=== PATIENT | male | born 1955 | race Caucasian/White ===

== ENCOUNTER → 2016-08-16 | Outpatient (CLI) | payer BC ==
--- NOTE | 2016-08-19 14:15 | PE ---
Nuclear medicine PET/CT HISTORY: Right upper lobe lung mass No comparisons Patient received 15.5 mCi 18 FDG. Delayed scanning was performed from skull base to the mid thighs. A localization and attenuation correction CT scan was performed Neck and chest: Right upper lobe lung mass measures approximately 4.2 cm in transverse dimension by 3 .6 cm in AP dimension and shows some central lucency, spiculated margins, pleural extension in the ri ght upper lobe. There is associated hypermetabolic uptake, SUV 21 there is no mediastinal, axillary, or hilar adenopathy. Coronary artery calcifications noted incidentally. Abdomen pelvis: No adrenal mass. No retroperitoneal adenopathy, no suspicious hypermetabolic uptake. IMPRESSION: Right upper lobe mass with corresponding hypermetabolic uptake, no evident adenopathy. Fi ndings suspicious for bronchogenic carcinoma.
== END | disposition home or self-care (01) ==
LOC: RADPETMAIN 11:20
PROVIDERS: ATTEND Internal Medicine
DX: R22.2 Localized swelling, mass and lump, trunk (principal)
CPT/HCPCS: 78815; A9552

== ENCOUNTER 2016-08-22 11:44 | Day surgery (SDC) | payer BC ==
[2016-08-20 15:21] VITALS: BMI 29.7
[~2016-08-22 11:44] MED LIST: ALBUTEROL NEB (CONC) 2.5 MG/0.5 ML INHALATION ONE; LACTATED RINGERS 1,000 ML IV ONE; LACTATED RINGERS 1,000 ML IV SCH; LIDOCAINE 2% (PF) 20 MG/ML 10ML INHALATION ONE; Pre Op ABX Message 1 EACH MISC MISCELLANE ONE
[2016-08-22 12:33] VITALS: TEMP 97.5
[2016-08-22] MEDS ORDERED: LIDOCAINE 1% 20 ML VIAL (10MG/ML) FOR IV START INTRADERMA ONE (12:40)
[2016-08-22] MEDS ORDERED: fentaNYL (PF) 50 MCG/ML 2 ML AMP ONE (14:16)
[2016-08-22] MEDS ORDERED: MIDAZOLAM 2 MG/2 ML VIAL ONE (14:16)
[2016-08-22] MEDS ORDERED: PROPOFOL 10 MG/ML 20 ML VIAL IV ONE (14:16)
[2016-08-22] MEDS ORDERED: GLYCOPYRROLATE 0.2 MG/ML 2 ML VIAL ONE (14:16)
[2016-08-22] MEDS ORDERED: KETAMINE 10 MG/ML 20 ML VIAL ONE (14:16)
[2016-08-22] MEDS ORDERED: LIDOCAINE 1% INJ 10MG/ML (20 ML MDV) ONE (14:16)
--- NOTE | 2016-08-22 14:49 | P.PCN ---
Date of Procedure: 08/22/16 Preoperative Diagnosis: Right upper lobe mass Postoperative Diagnosis: Right upper lobe mass Procedure(s) Performed: Flexible bronchoscopy, transbronchial biopsy Anesthesia: MAC Surgeon: Dm Phillip Vacuum Evaporation Operator #1: Jodie Egan Estimated Blood Loss (ml): 10 Condition: stable Disposition: same day Indications for Procedure: Right upper lobe mass Operative Findings: I am performing this procedure for Dr. Aguilar. The procedure was originally scheduled to be done by Dr. Phelps however due to time constraints I am doubling the procedure. I introduced myself to the patient. This was her first encounter with this patient. The procedure including the potential Occasions with expected to the patient at length and a consent was signed. The films were reviewed This procedure was done in the bronchoscopy suite and anesthesia was administered by the anesthesia team. This was done under conscious sedation. After achieving adequate sedation flexible bronchoscope was inserted right nostril was advanced into the upper airway. Examination of the posterior oropharynx, larynx and epiglottis and vocal cords was done. There was significant amount of adipose tissue and dynamic obstruction of the upper airway typical of obstructive sleep apnea. Note that the patient continued to obstructive upper airway throughout the procedure causing long periods of apneas and oxygen desaturation which limits our time and exposure to the right upper lobe mass. In any rate, the upper airway structures were all inspected. Epiglottis, vallecula, arytenoids and the vocal cords were all seen and all of these upper airway structures were within normal limits. Lidocaine was applied to the vocal cords and following that the bronchoscope was advanced upper trachea and examination of the tracheal bronchial tree was done. There was evidence of diffuse tracheal bronchomalacia seen throughout the patient's airway. There was also looseness for secretions scattered throughout the airway. Examination of the airway included the trachea, bilateral mainstem bronchi, right upper lobe, right middle lobe, right lower lobe, left upper lobe , left lower lobe,segments and subsegments. Note that during the airway inspection the patient continued to have airway desaturation. Abdomen the patient was done which and was lifted and jaw thrust was applied. Following that a nasopharyngeal airway was inserted. During that brief window. With the patient's pulse ox was above 90% I introduced myself flexible bronchoscope to the right upper lobe posterior segment and under fluoroscopic guidance a total of 5 passes were obtained. Total amount of bleeding was less than 10 ML's. It airway suctioning was done and immediately the bronchoscope was removed and the patient was left anesthesia for recovery. There was again frequent apneic Is a critically throughout the procedure that limit my procedure. I was able to obtain chest chronic a biopsies of the right upper lobe mass and the samples were sent for pathology. Postoperative chest x-ray will be done and the patient be transferred recovery in stable condition and discharged home to be followed up by Dr. Aguilar on to discuss the results.
--- NOTE | 2016-08-22 15:13 | FL ---
EXAMINATION TYPE: FL bronchoscopy DATE OF EXAM: 08/22/2016 3:06 PM COMPARISON: NONE HISTORY: Bronchoscopy TECHNIQUE: Fluoroscopy. FINDINGS: Fluoroscopic guidance was provided during procedure . A total of 1 minute and 59 seconds of fluoroscopic time was utilized during the procedure. IMPRESSION: As Above.
--- NOTE | 2016-08-22 15:15 | XR ---
EXAMINATION TYPE: XR chest 1V portable DATE OF EXAM: 08/22/2016 3:06 PM COMPARISON: NONE HISTORY: Post bronchoscopy TECHNIQUE: Single frontal view of the chest is obtained. FINDINGS: Large mass in the right upper lobe. Findings suspicious for less than 5% apical pneumothor ax.. Cardiomegaly and underlying COPD noted. IMPRESSION: 1. Large right upper lobe mass with findings suspicious for less than 5% right apical pneumothorax.
[2016-08-22 15:35] VITALS: PULSE 105; RESP 18
[2016-08-22 15:57] VITALS: BP 116/67
--- NOTE | 2016-08-26 12:24 | CDI ---
sdfkjoweijawodvnwoeghiwog [id number] Documentation Clarification OP MTDD
== END 2016-08-22 15:57 | disposition home or self-care (01) ==
LOC: ORWHC2ENDO 11:44
PROVIDERS: ATTEND Internal Medicine Critical Care Medicine
DX: C34.11 Malignant neoplasm of upper lobe, right bronchus or lung (principal); R06.81 Apnea, not elsewhere classified; J44.9 Chronic obstructive pulmonary disease, unspecified; F32.9 Major depressive disorder, single episode, unspecified; F10.21 Alcohol dependence, in remission; F17.200 Nicotine dependence, unspecified, uncomplicated; Z79.899 Other long term (current) drug therapy; Z91.010 Allergy to peanuts
CPT/HCPCS: 94640; 88305; 88342; 71010; 31628; J2250; J2001 ×2; J3010; J2704; 99153

== ENCOUNTER 2016-10-30 09:06 | Observation (INO) | payer BC ==
[~2016-10-30 09:06] MED LIST changes: -ALBUTEROL NEB (CONC) 2.5 MG/0.5 ML INHALATION ONE; +ALPRAZolam 0.25 MG TAB PO PRN; +ALPRAZolam 0.5 MG TAB PO PRN; +ASPIRIN 325 MG TAB PO STA; +ATORVASTATIN 80 MG TAB PO STA; -LACTATED RINGERS 1,000 ML IV ONE; -LACTATED RINGERS 1,000 ML IV SCH; -LIDOCAINE 2% (PF) 20 MG/ML 10ML INHALATION ONE; +NITROGLYCERIN SL TABS 0.4 MG TAB SUBLINGUAL PRN; -Pre Op ABX Message 1 EACH MISC MISCELLANE ONE; +SODIUM CHLORIDE 0.9% 1,000 ML in EMPTY BAG 1 BAG IV ONE
[2016-10-30] MEDS ORDERED: CHLORPHEN-HYDROcod 8-10mg/5ml 5 ML ORAL.SYRG PO ONE (10:15)
[2016-10-30] MEDS ORDERED: FAMOTIDINE 20 MG TAB PO STA (10:50)
[2016-10-30] MEDS ORDERED: NICOTINE 14MG/24HR PATCH TRANSDERM STA (11:55)
[2016-10-30] MEDS ORDERED: ASPIRIN 325 MG TAB PO STA (12:55)
[2016-10-30] MEDS ORDERED: SODIUM CHLORIDE 0.9% 1,000 ML in EMPTY BAG 1 BAG IV ONE (12:55)
[2016-10-30] MEDS ORDERED: ATORVASTATIN 80 MG TAB PO STA (12:55)
[2016-10-30] MEDS ORDERED: FAMOTIDINE 20 MG TAB PO PRN (12:56)
[2016-10-30] MEDS ORDERED: ALBUTEROL NEBULIZED 2.5 MG/3 ML INHALATION PRN (12:56)
[2016-10-30] MEDS ORDERED: SODIUM CHLORIDE 0.9% 1,000 ML IV ONE (14:14)
[2016-10-30 16:16] VITALS: BMI 28.0
[2016-10-30 21:55] VITALS: TEMP 98.1
[2016-10-31] MEDS ORDERED: SODIUM CHLORIDE 0.9% 1,000 ML BAG ONE (02:15)
[2016-10-31] MEDS ORDERED: ASPIRIN 325 MG TAB PO ONE (07:30)
[2016-10-31] MEDS ORDERED: SODIUM CHLORIDE 0.9% 1,000 ML IV ONE (07:35)
[2016-10-31] MEDS ORDERED: MIDAZOLAM 2 MG/2 ML VIAL IVP ONE ×2 (07:49)
[2016-10-31] MEDS ORDERED: LIDOCAINE 2% INJ 20 MG/ML SQ ONE (08:03)
[2016-10-31] MEDS: VERAPAMIL SYRINGE (5 MG/10 ML) INTRAARTER ONE ×2 (08:05→08:20)
[2016-10-31] MEDS ORDERED: HEPARIN SODIUM 1,000 UNIT/ML VIAL IV ONE (08:06)
[2016-10-31] MEDS ORDERED: IOHEXOL 350 MG/ML 100 ML BOTTLE INJ ONE (08:20)
[2016-10-31] MEDS ORDERED: RX INFO: IV CONTRAST WAS GIVEN 1 EACH MISC MISCELLANE PRN (08:29)
[2016-10-31] MEDS ORDERED: SODIUM CHLORIDE 0.9% 1,000 ML IV SCH (08:30)
--- NOTE | 2016-10-31 08:36 | P.PCN ---
Date of Procedure: 10/31/16 Operative Findings: CARDIAC CATHETERIZATION PERFORMING PHYSICIAN: Acosta Severino MD, RPVI PREPROCEDURE DIAGNOSES: - Abnormal stress test showing apical ischemia - Significant history of smoking POSTPROCEDURE DIAGNOSES: - Heavily calcified left coronary system - Mild nonobstructive CAD - Codominant right and left coronary system - Normal left ventricular systolic function PROCEDURE PERFORMED: 1. Selective right and left coronary angiogram 2. Left heart catheterization 3. Left ventriculography APPROACH: Right radial artery SEDATION: Conscious sedation with sedation length of 30 minutes PROCEDURE DESCRIPTION: After obtaining an informed consent and explaining the procedure benefits, risks , and complications, the patient was brought to cardiac computer lab para professional. Local anesthesia was performed using lidocaine subcutaneously. The right radial artery was cannulated using Seldinger technique, the guidewire passed easily, following that we advanced a 6-[place] sheath dilator assembly, the wire and dilator were removed and sheath was flushed. Following that, 2 mg of verapamil along with 3000 unit heparin were given. Selective right and left coronary angiogram using a 6-[place] JR4 and JL 3.5 catheters. Following that we did left heart catheterization followed by left ventriculography using 6-[place] pigtail catheter. The procedure was completed there was no complication. SELECTIVE CORONARY ANGIOGRAM: The right coronary artery: Is a large caliber vessel, its a dominant vessel. Its angiographically normal. Left main: Is heavily calcified was mild disease only in the ostium. The left circumflex: Is a large caliber vessel and codominant vessel. Its angiographically normal. In the midportion gives rises into the first OM which seems to be angiographically normal. Distally bifurcates into PDA and PLV branches and both are angiographically normal. The left anterior descending artery: It is a large caliber vessel. Its angiographically normal as well. It gives rises into 2 diagonal branches and both are angiographically normal. HEMODYNAMICS: The left ventricular end-diastolic pressure was 16 mmHg and no gradient was identified across aortic valve VENTRICULOGRAPHY: Was performed in the [place] projection and using a power injection. The left ventricular systolic function is normal with an EF about 50%. POSTPROCEDURE MANAGEMENT: Medical treatment Follow-up with the patient
[2016-10-31] MEDS ORDERED: CHLORPHEN-HYDROcod 8-10mg/5ml 5 ML ORAL.SYRG PO SCH (09:00)
[2016-10-31 09:58] VITALS: RESP 16
[2016-10-31 12:59] VITALS: BP 115/68; PULSE 105
== END 2016-10-31 13:28 | disposition home or self-care (01) ==
LOC: CATHCVL 09:06 → 5MS5E 09:07
PROVIDERS: ADMIT Internal Medicine Interventional Cardiology; ATTEND Internal Medicine Interventional Cardiology
DX: I25.10 Atherosclerotic heart disease of native coronary artery without angina pectoris (principal); R94.39 Abnormal result of other cardiovascular function study; J44.9 Chronic obstructive pulmonary disease, unspecified; Z79.899 Other long term (current) drug therapy; F17.210 Nicotine dependence, cigarettes, uncomplicated; C34.90 Malignant neoplasm of unspecified part of unspecified bronchus or lung
CPT/HCPCS: 93458; 99156; 99157; G0378 ×2; C1894; S4990; J2001; J2250; Q9967; J1644

== ENCOUNTER → 2017-01-06 | Outpatient (CLI) | payer BC ==
[2017-01-06 16:25] LABS: Appearance,Urine Clear (Clear); Bilirubin,Urine Negative (Negative); Glucose,Urine (UA) Negative (Negative); Ketones,Urine Negative (Negative); Leukocyte Esterase,Urine Negative (Negative); Nitrite,Urine Negative (Negative); Protein,Urine Negative (Negative); Specific Gravity,Urine 1.015 (1.001-1.035); UA Billing (MACRO vs. MICRO) CHEM; Urobilinogen,Urine <2.0 mg/dL (<2.0)
[2017-01-06 16:28] LABS: CHCM 32.5; HDW 2.13; HGB 12.4 gm/dL (13.0-17.5); MCH 30.4 pg (25.0-35.0); MCHC 31.8 g/dL (31.0-37.0); MCV 95.6 fL (80.0-100.0); Mean Platelet Volume 6.5; RBC 4.08 m/uL (4.30-5.90); RDW 14.3 % (11.5-15.5); WBC 10.4 k/uL (3.8-10.6)
[2017-01-06 16:29] LABS: INR 0.9 (<1.1)
[2017-01-06 16:30] LABS: Partial Thromboplastin Time 24.7 sec (22.0-30.0); Prothrombin Time 9.7 sec (9.0-12.0)
[2017-01-06 16:43] LABS: Anion Gap 10 mmol/L; Blood Urea Nitrogen 12 mg/dL (9-20); Carbon Dioxide 27 mmol/L (22-30); Chloride 104 mmol/L (98-107); Glucose 105 mg/dL (74-99); Non-African American GFR(MDRD) >60 (>60 ml/min/1.73 sqM); Potassium 4.5 mmol/L (3.5-5.1); Sodium 141 mmol/L (137-145)
== END | disposition home or self-care (01) ==
LOC: LABPAT 15:24
PROVIDERS: ATTEND Thoracic Surgery (Cardiothoracic Vascular Surgery)
DX: Z01.818 Encounter for other preprocedural examination (principal)
CPT/HCPCS: 80051; 81003; 82565; 82947; 84520; 85027; 85610; 85730

== ENCOUNTER 2017-01-12 08:17 | Inpatient (IN) | payer BC ==
[2017-01-06 16:39] VITALS: BMI 28.5
[~2017-01-12 08:17] MED LIST changes: -ALPRAZolam 0.25 MG TAB PO PRN; -ALPRAZolam 0.5 MG TAB PO PRN; -ASPIRIN 325 MG TAB PO STA; -ATORVASTATIN 80 MG TAB PO STA; +DEXAMETHASONE SOD PHOSPHATE 10 MG/ML 1 ML VIAL IV ONE; +HYDROmorphone 1 MG/ML 1 ML SYRINGE IVP PRN; +LIDOCAINE 1% 20 ML VIAL (10MG/ML) FOR IV START INTRADERMA PRN; +MIDAZOLAM 2 MG/2 ML VIAL IV PRN; -NITROGLYCERIN SL TABS 0.4 MG TAB SUBLINGUAL PRN; +ONDANSETRON 4 MG/2 ML VIAL IVP ONE; +SCOPOLAMINE 1.5MG/72HR PATCH TRANSDERM ONE; -SODIUM CHLORIDE 0.9% 1,000 ML in EMPTY BAG 1 BAG IV ONE; +ceFAZolin 2 GM in SODIUM CHLORIDE 0.9% 100 ML IVPB ONE
[2017-01-12] MEDS ORDERED: LIDOCAINE 1% 20 ML VIAL (10MG/ML) FOR IV START INTRADERMA ONE (08:40)
[2017-01-12] MEDS: LACTATED RINGERS 1,000 ML IV SCH (08:42)
[2017-01-12] MEDS ORDERED: fentaNYL (PF) 50 MCG/ML 2 ML AMP IV ONE (09:55)
[2017-01-12] MEDS ORDERED: HYDROmorphone (PF) 1 MG/ML ONE (10:06)
[2017-01-12] MEDS ORDERED: ROCURONIUM BROMIDE 10 MG/ML 10 ML VIAL IV ONE (10:06)
[2017-01-12] MEDS ORDERED: PHENYLEPHRINE-0.9% NACL SYG 1 MG/10 ML SYRINGE ONE (10:06)
[2017-01-12] MEDS ORDERED: PROPOFOL 10 MG/ML 20 ML VIAL IV ONE (10:06)
[2017-01-12] MEDS ORDERED: fentaNYL (PF) 50 MCG/ML 2 ML AMP ONE (10:06)
[2017-01-12] MEDS ORDERED: SUCCINYLCHOLINE CHLORIDE 100 MG/5 ML SYR IV ONE (10:06)
[2017-01-12] MEDS ORDERED: BUPIVACAINE (PF) 0.5% 30 ML VIAL SQ ONE ×2 (10:58)
[2017-01-12] MEDS ORDERED: LACTATED RINGERS 1,000 ML IV ONE ×3 (12:25→14:27)
[2017-01-12] MEDS ORDERED: ONDANSETRON 4 MG/2 ML VIAL IVP PRN (15:20)
[2017-01-12] MEDS ORDERED: DEXTROSE 5%-0.45% NACL 1,000 ML IV SCH (15:20)
[2017-01-12] MEDS ORDERED: IPRATROPIUM-ALBUTEROL 3 ML NEB IH PRN (15:20)
[2017-01-12] MEDS ORDERED: METOCLOPRAMIDE 5 MG/ML 2 ML VIAL IVP PRN (15:20)
--- NOTE | 2017-01-12 15:27 | P.OP ---
Date of Procedure: 01/12/17 Preoperative Diagnosis: Lung Cancer Right Upper Lobe Postoperative Diagnosis: Same Procedure(s) Performed: Robotic-assisted thoracoscopic right upper lobectomy with mediastinal lymph node dissection Implants: Anesthesia: SHAN Surgeon: Bipin Reed Sieve Maker #1: Karan Talley Estimated Blood Loss (ml): 300 IV fluids (ml): 1,000 Urine output (ml): 800 Pathology: other (Right upper lobe, lymph nodes at levels R 11, R 10, R8, R4 and level 7) Condition: stable Disposition: PACU Indications for Procedure: Patient presented with a mass in the right upper lobe which was biopsy-proven to be non-small cell carcinoma. Metastatic workup was negative. Elective lobectomy was initially planned by Dr. Rausch. Patient decided he wanted a minimally invasive procedure. He was referred to [facility] and elective surgery was scheduled. Operative Findings: There were marketed adhesions in the pleural space particularly in the area of the superior segment of the right lower lobe and the posterior segment of the right upper lobe. The hilum was also a fairly adherent and dissection was difficult. There were enlarged lymph nodes in the hilum and mediastinum which appeared anthracotic. Lobectomy proceeded without event and there were no air leaks at the end of the procedure. Description of Procedure: The patient was brought to the operating room placed supine on the operating table anesthetized and intubated. Double lumen endotracheal tube was positioned with fiberoptic bronchoscopy. No endobronchial lesions were noted. The patient was turned in the left lateral decubitus position. Was appropriately positioned for robotic lobectomy. The right chest was sterilely prepped and draped. Initial incision was made in the seventh interspace in the anterior axillary line and the video thoracoscope was introduced through a 8.5 m robotic port. Once we confirmed we were in the pleural space CO2 insufflation was begun. As the lung collapsed it became evident that there were significant adhesions. The remaining ports were placed in the usual position for the robotic lobectomy. The robot was docked and we proceeded to take down the adhesions with bipolar electrocautery dissection. Once the adhesions were down we mobilized the inferior pulmonary ligament. Dissection was carried posteriorly and the paraesophageal and subcarinal lymph nodes were dissected out and sent for permanent section. Dissection was carried anteriorly across the bronchus intermedius and the lymph node between the bronchus intermedius and right upper lobe bronchus was dissected out. Dissection in the hilum was difficult. We able to identify a small posterior branch the pulmonary artery and ligated and divided with a single firing of Endo NAIF thin stapler. Dissection was now carried anteriorly and the pulmonary venous branches draining the upper lobe were identified and dissected out ligated and divided with 2 firings of Endo NAIF thin stapler. We now were able to identify 2 large branches of the pulmonary artery leading to the right upper lobe. These were individually taken with a Endo NAIF thin staplers. Lymph nodes between these 2 branches was mobilized and sent as R 11 lymph node. We were now able to encircle the upper lobe bronchus again sending R 11 lymph nodes for permanent section. The upper lobe bronchus was ligated and divided with Endo NAIF medium stapler. We now proceeded with biopsy of the R 10 lymph node and R4 lymph nodes. The anterior portion of the fissure between the middle and upper lobe was able to be taken with an Endo NAIF medium stapler robotically however proceeding more distally was very difficult. At this point we undocked the robot and completed the(lobectomy by firing several more firings of Endo NAIF medium stapler through a standard thoracoscopic approach. The lobectomy specimen was placed in a large Endo Catch bag and the working port incision was enlarged to allow removal of the specimen from the chest. Her was quite large and the specimen did tear somewhat. Specimen was sent for permanent section. The chest was irrigated out and airleak was evaluated and no significant air leak was identified. 28-Swedish chest tube was placed through separate stab incision and positioned posterior apically. Was inflated under direct vision and the incisions closed with layers of Vicryl suture. Blocks were performed at levels 5 through 10 with 2-3 mL of half percent Marcaine per level. Patient was turned supine and extubated and transferred to recovery in stable condition.
--- NOTE | 2017-01-12 15:42 | XR ---
EXAMINATION TYPE: XR chest 1V DATE OF EXAM: 01/12/2017 COMPARISON: Prior chest x-ray 08/22/2016 HISTORY: Status post right upper lobectomy, lung carcinoma TECHNIQUE: Single frontal view of the chest is obtained. FINDINGS: Right-sided chest tube is present. Lung mass no longer evident. Prominence of the right hi lum likely due to postop change. No evident pneumothorax or pleural effusion. Continues emphysema is present. Heart size is likely stable. IMPRESSION: Postop changes.
[2017-01-12] MEDS: ceFAZolin 2 GM in SODIUM CHLORIDE 0.9% 100 ML IVPB SCH (18:37)
[2017-01-12] MEDS: IPRATROPIUM-ALBUTEROL 3 ML NEB IH SCH ×2 (18:46→20:01)
--- NOTE | 2017-01-12 19:14 | P.CNPUL ---
History of Present Illness Consult date: 01/12/17 Chief complaint: Lung mass, right upper lobe resection History of present illness: This is a 61-year-old male patient with a right upper lobe mass and biopsy- proven non-small cell lung cancer of a squamous cell type.. Metastatic workup was essentially negative. The patient came in for an elective lobectomy to be done by Dr. Bipin Reed. The surgery was done today. This was a robotic- assisted thoracoscopic right upper lobe resection with mediastinal lymph node dissection. The lymph nodes that were dissected involved are 11, R 10, R8, R for and R 7. Estimated blood loss is 300 mL. The patient had no significant perioperative complications and postop the patient got moved to the [facility] surgical floor. The chest x-ray postop showed right-sided chest tube was in place without evidence of any pneumothorax. There is some background emphysema. The right hilum was a bit prominent. Hemodynamically patient is stable. He is on Dilaudid 0.5 mg every 5 hours in the. A basis for pain control and he is also on [place] 5/325 every 4 hours for pain control. He is on bronchodilators. Incentive spirometer was also given. Hemodynamically stable. Currently on 2 L of oxygen by nasal cannula with a saturation of 97%. The patient's preoperative FEV1 is no other of 2.6 L which is 70% of predicted. Diffusion capacity was 72% of predicted. Review of Systems All systems: negative Constitutional: Denies chills, Denies fever Eyes: denies blurred vision, denies pain Ears, nose, mouth and throat: Denies headache, Denies sore throat Cardiovascular: Denies chest pain, Denies shortness of breath Respiratory: Denies cough Gastrointestinal: Denies abdominal pain, Denies diarrhea, Denies nausea, Denies vomiting Musculoskeletal: Denies myalgias Integumentary: Denies pruritus, Denies rash Neurological: Denies numbness, Denies weakness Psychiatric: Denies anxiety, Denies depression Endocrine: Denies fatigue, Denies weight change Past Medical History Past Medical History: Cancer, GERD/Reflux, Hyperlipidemia, Hypertension, Sleep Apnea/CPAP/BIPAP Additional Past Medical History / Comment(s): Lung mass, cavitating, consistent with squamous cell carcinoma, peptic ulcer disease, COPD with an FEV1 of 72% of predicted at baseline, history of alcoholism, depression, hyperlipidemia History of Any Multi-Drug Resistant Organisms: None Reported Past Surgical History: No Surgical Hx Reported Additional Past Surgical History / Comment(s): bronchoscopy Past Anesthesia/Blood Transfusion Reactions: Previous Problems w/ Anesthesia Additional Past Anesthesia/Blood Transfusion Reaction / Comment(s): pt had an issue after bronch. that he was told was related to his probable sleep apnea Smoking Status: Current every day smoker - Past Family History Father Family Medical History: Cancer Additional Family Medical History / Comment(s): throat Mother Family Medical History: No Reported History Medications and Allergies Home Medications Medication Instructions Recorded Confirmed Type ALPRAZolam [Xanax] 0.5 mg PO BID 08/20/16 01/12/17 History Albuterol Nebulized [Ventolin 2.5 mg INHALATION RT-TID PRN 08/20/16 01/12/17 History Nebulized] Ranitidine HCl [Zantac] 150 mg PO BID PRN 10/30/16 01/12/17 History Aspirin 81 mg PO DAILY 01/06/17 01/12/17 History Atorvastatin [Lipitor] 40 mg PO HS 01/06/17 01/12/17 History Citalopram Hydrobromide [CeleXA] 20 mg PO BID 01/06/17 01/12/17 History Metoprolol Tartrate [Lopressor] 12.5 mg PO BID 01/06/17 01/12/17 History traZODone HCL 150 mg PO HS 01/06/17 01/12/17 History Amoxicillin 500 mg PO TID 01/07/17 01/12/17 History Ipratropium Nebulized [Atrovent 0.5 mg INHALATION RT-QID 01/07/17 01/12/17 History Nebulized] Promethaz-Cod 6.25-10 mg/5 ml 5 ml PO Q6HR PRN 01/07/17 01/12/17 History [Phenergan with Codeine] Allergies Allergy/AdvReac Type Severity Reaction Status Date / Time peanut Allergy Anaphylaxis Verified 01/12/17 15:58 Physical Exam Vitals: Vital Signs Temp Pulse Resp BP BP Pulse Ox 01/12/17 16:46 100 16 130/77 97 01/12/17 16:00 99 20 117/66 93 L 01/12/17 15:45 96 20 116/58 97 01/12/17 15:30 97 20 127/75 97 01/12/17 15:15 103 H 20 125/67 99 01/12/17 15:00 98 20 142/74 99 01/12/17 14:45 102 H 20 130/72 97 01/12/17 13:38 97.9 F 107 H 20 179/82 97 01/12/17 08:53 86 107/66 01/12/17 08:34 98.0 F 93 18 127/79 93 L Intake and Output 01/12/17 01/12/17 01/12/17 06:59 14:59 22:59 Intake Total 2800 400 Output Total 700 10 Balance 2100 390 Intake: IV 2800 400 Output: Urine 400 10 Estimated Blood Loss 300 Other: Voiding Method Indwelling Catheter The patient appeared well nourished and normally developed. Vital signs as documented. Head exam is unremarkable. No scleral icterus or corneal arcus noted. Neck is without jugular venous distension, thyromegaly, or carotid bruits. Carotid upstrokes are brisk bilaterally. Lungs are clear to auscultation and percussion. There is a right-sided chest tube in place without evidence of any air leak. Surgical wound site is dry clean and intact. Cardiac exam reveals the PMI to be normally sized and situated. Rhythm is regular. First and second heart sounds normal. No murmurs, rubs or gallops. Abdominal exam reveals normal bowel sounds, no masses, no organomegaly and no aortic enlargement. Extremities are nonedematous and both femoral and pedal pulses are normal. Results - Diagnostic Findings Chest x-ray: image reviewed Assessment and Plan Plan: Assessment 1 cavitating right upper lobe squamous cell carcinoma status post robotic- assisted right upper lobe resection with mediastinal lymph node dissection he had patient is postop day #0. 2 postoperative right-sided chest tube tomorrow no evidence of pneumothorax or air leak 3 COPD with a preop FEV1 of 32% of predicted 4 alcoholism as the patient drinks approximately a pint of vodka every other day 5 smoker 6 hyperlipidemia 7 depression Plan Encourage use of incentive spirometer. Monitor the output from the chest tube. Monitored for any form of air leak. Daily chest x-ray. Pain control. Bronchodilators. We'll continue to follow. Heparin subcu for DVT prophylaxis. Watch for any signs of DTs.
[2017-01-12] MEDS: ALPRAZolam 0.5 MG TAB PO SCH (21:38)
[2017-01-12] MEDS: ATORVASTATIN 40 MG TAB PO SCH (21:39)
[2017-01-12] MEDS: traZODone HCL 50 MG TAB PO SCH (21:39)
[2017-01-12] MEDS: METOPROLOL TARTRATE 12.5 MG TAB PO SCH (21:39)
[2017-01-12] MEDS: HEPARIN SODIUM,PORCINE 5,000 UNIT/ML 1 ML VIAL SQ SCH (21:39)
[2017-01-12] MEDS: CITALOPRAM HYDROBROMIDE 20 MG TAB PO SCH (21:39)
[2017-01-12] MEDS: HYDROcodone/APAP 5-325MG 1 EACH TAB PO PRN (21:47)
[2017-01-13] MEDS: ceFAZolin 2 GM in SODIUM CHLORIDE 0.9% 100 ML IVPB SCH (00:48)
[2017-01-13] MEDS: MORPHINE SULFATE 2 MG/ML SYRINGE IV PRN ×2 (00:56→06:52)
[2017-01-13 01:41] LABS: Basophils % (A) 0 %; CH 30.8; CHCM 32.9; Eosinophils % (A) 0 %; HCT 36.4 % (39.0-53.0); HDW 2.18; HGB 11.8 gm/dL (13.0-17.5); Luc # (Auto) 0.07; Luc % (Auto) 1; Lymphocytes # (A) 1.3 k/uL (1.0-4.8); Lymphocytes % (A) 12 %; MCH 30.4 pg (25.0-35.0); MCHC 32.4 g/dL (31.0-37.0); MCV 93.9 fL (80.0-100.0); Mean Platelet Volume 6.3; Monocytes # (A) 0.5 k/uL (0-1.0); Monocytes % (A) 5 %; Neutrophils # (A) 9.4 k/uL (1.3-7.7); Neutrophils % (A) 83 %; RBC 3.87 m/uL (4.30-5.90); RDW 14.2 % (11.5-15.5); WBC 11.3 k/uL (3.8-10.6); WBC (Perox) 12.07
[2017-01-13] MEDS: LACTATED RINGERS 1,000 ML IV SCH (02:21)
[2017-01-13] MEDS: HYDROcodone/APAP 5-325MG 1 EACH TAB PO PRN ×5 (04:58→21:51)
[2017-01-13 06:03] LABS: Basophils % (A) 0 %; CH 30.8; CHCM 33.3; Eosinophils # (A) 0.2 k/uL (0-0.7); Eosinophils % (A) 1 %; HCT 34.9 % (39.0-53.0); HDW 2.19; HGB 11.6 gm/dL (13.0-17.5); Luc # (Auto) 0.14; Luc % (Auto) 1; Lymphocytes % (A) 18 %; MCH 30.8 pg (25.0-35.0); MCHC 33.2 g/dL (31.0-37.0); MCV 92.8 fL (80.0-100.0); Mean Platelet Volume 6.4; Monocytes # (A) 0.7 k/uL (0-1.0); Monocytes % (A) 6 %; Neutrophils # (A) 8.1 k/uL (1.3-7.7); Neutrophils % (A) 73 %; RBC 3.76 m/uL (4.30-5.90); RDW 14.2 % (11.5-15.5); WBC 11.1 k/uL (3.8-10.6); WBC (Perox) 11.99
[2017-01-13 06:19] LABS: ALT 26 U/L (21-72); AST 21 U/L (17-59); Alkaline Phosphatase 83 U/L (38-126); Anion Gap 8 mmol/L; Blood Urea Nitrogen 8 mg/dL (9-20); Calcium 8.2 mg/dL (8.4-10.2); Carbon Dioxide 27 mmol/L (22-30); Chloride 101 mmol/L (98-107); Glucose 130 mg/dL (74-99); Non-African American GFR(MDRD) >60 (>60 ml/min/1.73 sqM); Potassium 4.1 mmol/L (3.5-5.1); Sodium 136 mmol/L (137-145); Total Bilirubin 0.6 mg/dL (0.2-1.3); Total Protein 5.6 g/dL (6.3-8.2)
--- NOTE | 2017-01-13 07:27 | XR ---
EXAMINATION TYPE: XR chest 1V DATE OF EXAM: 01/13/2017 HISTORY: post op lobectomy. REFERENCE: Previous study dated 01/12/2017. FINDINGS: A right pleural drain remains in place. No definite residual pneumothorax is seen. There is marked prominence of the right hilum, unchanged from previous. There is some left basilar atelectasi s. I suspect a small effusion. IMPRESSION: CONTINUING POSTOPERATIVE CHANGE.
[2017-01-13] MEDS: IPRATROPIUM-ALBUTEROL 3 ML NEB IH SCH ×4 (08:19→19:32)
[2017-01-13] MEDS: ASPIRIN 81 MG CHEW PO SCH (09:02)
[2017-01-13] MEDS: CITALOPRAM HYDROBROMIDE 20 MG TAB PO SCH ×2 (09:02→21:46)
[2017-01-13] MEDS: METOPROLOL TARTRATE 12.5 MG TAB PO SCH ×2 (09:02→21:46)
[2017-01-13] MEDS: HEPARIN SODIUM,PORCINE 5,000 UNIT/ML 1 ML VIAL SQ SCH ×2 (09:03→21:47)
[2017-01-13] MEDS: ALPRAZolam 0.5 MG TAB PO SCH ×2 (09:11→21:51)
--- NOTE | 2017-01-13 10:30 | P.PN ---
Progress Note - Text CV Surgery Nursing Principal diagnosis: Lung cancer right upper lobe. POD #1 robotic assisted thoracoscopic right upper lobectomy with mediastinal lymph node dissection. Patient awake and alert, no distress noted, no specific complaints. He is sitting up to the bedside chair. Complaining of pain to his right chest with deep breathing and coughing, rating his pain 9 out of 10 on the pain scale. Vital Signs: Afebrile Vital Signs - 24 hr 01/12/17 01/12/17 01/12/17 13:38 14:45 15:00 Temperature 97.9 F Pulse Rate Pulse Rate [ 107 H 102 H 98 Pulse Oximetery ] Respiratory 20 20 20 Rate Blood Pressure 179/82 130/72 142/74 [Left Arm Supine] Blood Pressure [Right Arm Supine] O2 Sat by Pulse 97 97 99 Oximetry 01/12/17 01/12/17 01/12/17 15:15 15:30 15:45 Temperature Pulse Rate Pulse Rate [ 103 H 97 96 Pulse Oximetery ] Respiratory 20 20 20 Rate Blood Pressure 125/67 127/75 116/58 [Left Arm Supine] Blood Pressure [Right Arm Supine] O2 Sat by Pulse 99 97 97 Oximetry 01/12/17 01/12/17 01/12/17 16:00 16:46 20:00 Temperature 99.1 F Pulse Rate Pulse Rate [ 99 100 96 Pulse Oximetery ] Respiratory 20 16 18 Rate Blood Pressure 117/66 130/77 [Left Arm Supine] Blood Pressure 98/53 [Right Arm Supine] O2 Sat by Pulse 93 L 97 95 Oximetry 01/12/17 01/12/17 01/13/17 20:01 20:14 00:00 Temperature 99.3 F Pulse Rate 100 100 Pulse Rate [ 98 Pulse Oximetery ] Respiratory 18 Rate Blood Pressure [Left Arm Supine] Blood Pressure 104/57 [Right Arm Supine] O2 Sat by Pulse 95 Oximetry 01/13/17 01/13/17 01/13/17 04:00 08:20 08:31 Temperature 97 F L Pulse Rate 82 84 Pulse Rate [ 80 Pulse Oximetery ] Respiratory 18 Rate Blood Pressure [Left Arm Supine] Blood Pressure 94/52 [Right Arm Supine] O2 Sat by Pulse 91 L 93 L Oximetry Labs: Short CBC 01/13/17 01/13/17 Range/Units 01:01 05:25 WBC 11.3 H 11.1 H (3.8-10.6) k/uL Hgb 11.8 L 11.6 L (13.0-17.5) gm/dL Hct 36.4 L 34.9 L (39.0-53.0) % Plt Count 320 341 (150-450) k/uL Neutrophils # 9.4 H 8.1 H (1.3-7.7) k/uL BMP 01/13/17 05:25 Sodium 136 L Potassium 4.1 Chloride 101 Carbon Dioxide 27 BUN 8 L Creatinine 0.58 L Glucose 130 H Calcium 8.2 L Liver Function 01/13/17 Range/Units 05:25 Total Bilirubin 0.6 (0.2-1.3) mg/dL AST 21 (17-59) U/L ALT 26 (21-72) U/L Alkaline Phosphatase 83 (38-126) U/L Albumin 2.8 L (3.5-5.0) g/dL IV Fluids: D5.45 normal saline at 40 mL per hour. Lungs: Essentially clear throughout, diminished bilateral bases left greater than right. Respirations are symmetrical and unlabored. O2 sat: 95% on 4 L nasal cannula. I/S: 500 mL, reviewed with the patient the importance of using his incentive spirometry every hour while awake. Patient did give a good return demonstration on his incentive spirometry. Heart: S1S2, regular rhythm and rate, negative for S3, gallop or murmur. Remote telemetry showing normal sinus rhythm heart rate 78. Right posterior lateral chest incisions clean dry and well approximated. No drainage noted. Dressing dry and intact. Smallest amount of subcutaneous emphysema felt to his right lateral chest rounding his chest tube. Knee-high DEREK hose and sequential compression devices in place to his bilateral lower extremities. Abdomen: Soft, nontender. Positive bowel sounds present in all 4 quadrants. U/O: Adequate, Sanchez catheter for accurate I&O. 1100 mL output in the last 8 hours. Chest Tubes: Right lateral chest tube without air leak, draining thin serosanguineous drainage. It is to low continuous wall suction at -20 cm H2O. 151 L output in the last 8 hours, 450 mL output since surgery. 24 hr Total: Intake & Output 01/11/17 01/12/17 01/13/17 01/14/17 06:59 06:59 06:59 06:59 Intake Total 4037 1117 Output Total 3135 Balance 902 1117 Weight 111 kg Active Medications Hydrocodone Bitart/Acetaminophen ([place] 5-325) 1 each PO Q4HR PRN PRN Reason: Pain Scale 1 to 5 Last Admin: 01/13/17 08:58 Dose: 1 each Hydrocodone Bitart/Acetaminophen ([place] 5-325) 2 each PO Q4HR PRN PRN Reason: Pain Scale 6 to 10 Last Admin: 01/13/17 04:58 Dose: 2 each Albuterol/Ipratropium (Duoneb 0.5 Mg-3 Mg/3 Ml Soln) 3 ml IH RT-Q1H PRN PRN Reason: Shortness Of Breath Or Wheezing Albuterol/Ipratropium (Duoneb 0.5 Mg-3 Mg/3 Ml Soln) 3 ml IH RT-QID [facility] Last Admin: 01/13/17 08:19 Dose: 3 ml Alprazolam (Xanax) 0.5 mg PO BID [facility] Last Admin: 01/13/17 09:11 Dose: 0.5 mg Aspirin (Aspirin) 81 mg PO DAILY [facility] Last Admin: 01/13/17 09:02 Dose: 81 mg Atorvastatin Calcium (Lipitor) 40 mg PO [facility] Last Admin: 01/12/17 21:39 Dose: 40 mg Citalopram Hydrobromide (Celexa) 20 mg PO BID [facility] Last Admin: 01/13/17 09:02 Dose: 20 mg Heparin Sodium (Porcine) (Heparin) 5,000 unit SQ Q12HR [facility] Last Admin: 01/13/17 09:03 Dose: 5,000 unit Metoclopramide HCl (Reglan) 10 mg IVP Q4HR PRN PRN Reason: Nausea And Vomiting Metoprolol Tartrate (Lopressor) 12.5 mg PO BID [facility] Last Admin: 01/13/17 09:02 Dose: 12.5 mg Ondansetron HCl (Zofran) 4 mg IVP Q8HR PRN PRN Reason: Nausea And Vomiting Trazodone HCl (Desyrel) 150 mg PO HS [facility] Last Admin: 01/12/17 21:39 Dose: 150 mg Plan: 1. We will place his chest tube to waterseal and remove his continuous wall suction. 2. Pain control per when necessary orders. 3. Increase and encourage activity as tolerated. 4. Wean oxygen as tolerated, Dr. Phillip recommendations per pulmonary management. 5. GI/DVT prophylaxis in place. 6. Saline lock IV fluids. 7. Pathology results pending. 8. Further recommendations as patient progresses.
--- NOTE | 2017-01-13 10:52 | P.PN ---
Subjective This is a 61-year-old male patient with a right upper lobe mass and biopsy- proven non-small cell lung cancer of a squamous cell type.. Metastatic workup was essentially negative. The patient came in for an elective lobectomy to be done by Dr. Bipin Reed. The surgery was done today. This was a robotic- assisted thoracoscopic right upper lobe resection with mediastinal lymph node dissection. The lymph nodes that were dissected involved are 11, R 10, R8, R for and R 7. Estimated blood loss is 300 mL. The patient had no significant perioperative complications and postop the patient got moved to the [facility] surgical floor. The chest x-ray postop showed right-sided chest tube was in place without evidence of any pneumothorax. There is some background emphysema. The right hilum was a bit prominent. Hemodynamically patient is stable. He is on Dilaudid 0.5 mg every 5 hours in the. A basis for pain control and he is also on [place] 5/325 every 4 hours for pain control. He is on bronchodilators. Incentive spirometer was also given. Hemodynamically stable. Currently on 2 L of oxygen by nasal cannula with a saturation of 97%. The patient's preoperative FEV1 is no other of 2.6 L which is 70% of predicted. Diffusion capacity was 72% of predicted. On 01/13/2017 I'm seeing this patient in follow-up. The patient is doing well. He is using incentive spirometer. He is pulling approximately 500 mL. Chest tube has drained only 400 mL since yesterday. The chest tube was placed to a waterseal. No evidence of any air leak. Chest x-ray from today shows postsurgical changes in the chest tube remains in a good location. Hemodynamically stable. Pain is under decent control for now. Objective - Vital Signs Vital signs: Vital Signs Temp 97 F L 01/13/17 04:00 Pulse 84 01/13/17 08:31 Resp 18 01/13/17 04:00 BP 94/52 01/13/17 04:00 Pulse Ox 93 L 01/13/17 08:20 Intake & Output 01/12/17 01/13/17 01/13/17 18:59 06:59 18:59 Intake Total 3437 600 1117 Output Total 710 2425 Balance 2727 -1825 1117 Weight 111 kg Intake: IV 3200 580 Dextrose 5%-0.45% NaCl 1, 480 000 ml @ 40 mls/hr IV . Q24H [facility] Rx#:[id number] ceFAZolin 2 gm In Sodium 100 Chloride 0.9% 100 ml @ 100 mls/hr IVPB Q8HR [facility] Rx#:[id number] Oral 237 600 537 Output: Chest Tube Drainage 425 Chest Tube Right Anterior 425 Chest Urine 410 2000 Uretheral (Sanchez) 2000 Estimated Blood Loss 300 Other: Voiding Method Indwelling Catheter Indwelling Catheter - Exam The patient appeared well nourished and normally developed. Vital signs as documented. Head exam is unremarkable. No scleral icterus or corneal arcus noted. Neck is without jugular venous distension, thyromegaly, or carotid bruits. Carotid upstrokes are brisk bilaterally. Lungs are clear to auscultation and percussion. There is a right-sided chest tube in place without evidence of any air leak. Surgical wound site is dry clean and intact. Cardiac exam reveals the PMI to be normally sized and situated. Rhythm is regular. First and second heart sounds normal. No murmurs, rubs or gallops. Abdominal exam reveals normal bowel sounds, no masses, no organomegaly and no aortic enlargement. Extremities are nonedematous and both femoral and pedal pulses are normal. - Labs CBC & Chem 7: 01/13/17 05:25 01/13/17 05:25 Labs: Abnormal Lab Results - Last 24 Hours (Table) 01/13/17 01/13/17 01/13/17 Range/Units 01:01 05:25 05:25 WBC 11.3 H 11.1 H (3.8-10.6) k/uL RBC 3.87 L 3.76 L (4.30-5.90) m/uL Hgb 11.8 L 11.6 L (13.0-17.5) gm/dL Hct 36.4 L 34.9 L (39.0-53.0) % Neutrophils # 9.4 H 8.1 H (1.3-7.7) k/uL Sodium 136 L (137-145) mmol/L BUN 8 L (9-20) mg/dL Creatinine 0.58 L (0.66-1.25) mg/dL Glucose 130 H (74-99) mg/dL Calcium 8.2 L (8.4-10.2) mg/dL Total Protein 5.6 L (6.3-8.2) g/dL Albumin 2.8 L (3.5-5.0) g/dL Assessment and Plan Plan: Assessment 1 cavitating right upper lobe squamous cell carcinoma status post robotic- assisted right upper lobe resection with mediastinal lymph node dissection he had patient is postop day #1. 2 postoperative right-sided chest tube tomorrow no evidence of pneumothorax or air leak. The chest x-ray remains stable with postsurgical changes and there is no evidence of any pneumothorax. 3 COPD with a preop FEV1 of 32% of predicted 4 alcoholism as the patient drinks approximately a pint of vodka every other day 5 smoker 6 hyperlipidemia 7 depression Plan Encourage use of incentive spirometer. Chest tube to waterseal. Pain control. Ambulation. We'll continue to follow.
[2017-01-13] MEDS ORDERED: MORPHINE SULFATE 2 MG/ML SYRINGE IVP STA (13:27)
[2017-01-13] MEDS ORDERED: MORPHINE SULFATE 2 MG/ML SYRINGE ONE (13:31)
--- NOTE | 2017-01-13 16:40 | P.CONS ---
History of Present Illness - Reason for Consult Consult date: 01/13/17 thyroid disease Requesting physician: Bipin Reed - History of Present Illness 61-year-old Male who underwent outpatient workup was diagnosed with squamous cell lung cancer was brought into the hospital for the mediastinal lymph node dissection and right upper lobectomy Patient underwent a PET scan which was essentially negative . Patient is postoperative day 1 status post lobectomy currently has a right- sided chest tube in place has 300 mL of blood loss Currently states that he has significant amount of pain around the chest tube site Denies having any headaches blurry vision chest pain other than those described above abdominal pain nausea vomiting or diarrhea Review of Systems All systems: negative (Noted in HPI) Past Medical History Past Medical History: Cancer, GERD/Reflux, Hyperlipidemia, Hypertension, Sleep Apnea/CPAP/BIPAP Additional Past Medical History / Comment(s): Lung mass, cavitating, consistent with squamous cell carcinoma, peptic ulcer disease, COPD with an FEV1 of 72% of predicted at baseline, history of alcoholism, depression, hyperlipidemia History of Any Multi-Drug Resistant Organisms: None Reported Past Surgical History: No Surgical Hx Reported Additional Past Surgical History / Comment(s): bronchoscopy Past Anesthesia/Blood Transfusion Reactions: Previous Problems w/ Anesthesia Additional Past Anesthesia/Blood Transfusion Reaction / Comm: pt had an issue after bronch. that he was told was related to his probable sleep apnea Smoking Status: Current every day smoker - Past Family History Father Family Medical History: Cancer Additional Family Medical History / Comment(s): throat Mother Family Medical History: No Reported History Medications and Allergies Home Medications Medication Instructions Recorded Confirmed Type ALPRAZolam [Xanax] 0.5 mg PO BID 08/20/16 01/12/17 History Albuterol Nebulized [Ventolin 2.5 mg INHALATION RT-TID PRN 08/20/16 01/12/17 History Nebulized] Ranitidine HCl [Zantac] 150 mg PO BID PRN 10/30/16 01/12/17 History Aspirin 81 mg PO DAILY 01/06/17 01/12/17 History Atorvastatin [Lipitor] 40 mg PO HS 01/06/17 01/12/17 History Citalopram Hydrobromide [CeleXA] 20 mg PO BID 01/06/17 01/12/17 History Metoprolol Tartrate [Lopressor] 12.5 mg PO BID 01/06/17 01/12/17 History traZODone HCL 150 mg PO HS 01/06/17 01/12/17 History Amoxicillin 500 mg PO TID 01/07/17 01/12/17 History Ipratropium Nebulized [Atrovent 0.5 mg INHALATION RT-QID 01/07/17 01/12/17 History Nebulized] Promethaz-Cod 6.25-10 mg/5 ml 5 ml PO Q6HR PRN 01/07/17 01/12/17 History [Phenergan with Codeine] Allergies Allergy/AdvReac Type Severity Reaction Status Date / Time peanut Allergy Anaphylaxis Verified 01/12/17 15:58 Physical Exam Vitals: Vital Signs Temp Pulse Pulse Resp BP BP Pulse Ox 01/13/17 16:00 97.0 F L 89 20 122/67 94 L 01/13/17 15:40 80 01/13/17 15:29 80 01/13/17 12:00 94 16 114/71 95 01/13/17 11:31 82 01/13/17 11:22 84 01/13/17 08:31 84 01/13/17 08:20 82 93 L 01/13/17 08:00 96.3 F L 85 16 97/54 94 L 01/13/17 04:00 97 F L 80 18 94/52 91 L 01/13/17 00:00 99.3 F 98 18 104/57 95 01/12/17 20:14 100 01/12/17 20:01 100 01/12/17 20:00 99.1 F 96 18 98/53 95 01/12/17 16:46 100 16 130/77 97 Intake and Output 01/13/17 01/13/17 01/13/17 06:59 14:59 22:59 Intake Total 300 1911 Output Total 1250 650 Balance -950 1261 Intake: IV 900 Dextrose 5%-0.45% NaCl 1, 800 000 ml @ 40 mls/hr IV . Q24H [facility] Rx#:[id number] ceFAZolin 2 gm In Sodium 100 Chloride 0.9% 100 ml @ 100 mls/hr IVPB Q8HR [facility] Rx#:[id number] Oral 300 1011 Output: Chest Tube Drainage 150 Chest Tube Right Anterior 150 Chest Drainage 50 Lower Lateral Chest 50 Urine 1100 600 Uretheral (Sanchez) 1100 Other: Voiding Method Indwelling Catheter Indwelling Catheter Weight 111 kg Gen. appearance appears to be in some distress Lungs diminished breath sounds on the right chest tube site appears appropriate Heart regular rate and rhythm no murmurs appreciated Abdomen is soft some tenderness noted in the epigastric area Neuro no focal motor or sensory deficits noted Results CBC & Chem 7: 01/13/17 05:25 01/13/17 05:25 Labs: Abnormal Lab Results - Last 24 Hours (Table) 01/13/17 01/13/17 01/13/17 Range/Units 01:01 05:25 05:25 WBC 11.3 H 11.1 H (3.8-10.6) k/uL RBC 3.87 L 3.76 L (4.30-5.90) m/uL Hgb 11.8 L 11.6 L (13.0-17.5) gm/dL Hct 36.4 L 34.9 L (39.0-53.0) % Neutrophils # 9.4 H 8.1 H (1.3-7.7) k/uL Sodium 136 L (137-145) mmol/L BUN 8 L (9-20) mg/dL Creatinine 0.58 L (0.66-1.25) mg/dL Glucose 130 H (74-99) mg/dL Calcium 8.2 L (8.4-10.2) mg/dL Total Protein 5.6 L (6.3-8.2) g/dL Albumin 2.8 L (3.5-5.0) g/dL Assessment and Plan Plan: #1 squamous cell lung cancer status post right upper lobectomy and mediastinal lymph node dissection #2 dyslipidemia #3 hypertension #4 anxiety Plan Await biopsy results Further care depending on the staging of the lung cancer IS DVT prophylaxis Thank you for the consultation we'll follow patient along with you
[2017-01-13] MEDS: KETOROLAC 30 MG/ML 1 ML VIAL IVP SCH ×2 (17:28→23:28)
[2017-01-13] MEDS: ATORVASTATIN 40 MG TAB PO SCH (21:46)
[2017-01-13] MEDS: traZODone HCL 50 MG TAB PO SCH (21:47)
[2017-01-14] MEDS: HYDROcodone/APAP 5-325MG 1 EACH TAB PO PRN ×3 (05:22→19:53)
[2017-01-14] MEDS: KETOROLAC 30 MG/ML 1 ML VIAL IVP SCH ×4 (06:23→23:04)
[2017-01-14] MEDS: IPRATROPIUM-ALBUTEROL 3 ML NEB IH SCH ×4 (07:52→20:03)
--- NOTE | 2017-01-14 07:59 | XR ---
EXAMINATION TYPE: XR chest 1V portable DATE OF EXAM: 01/14/2017 COMPARISON: Prior chest x-ray 01/13/2017 HISTORY: Chest tube, postop TECHNIQUE: Single frontal view of the chest is obtained. FINDINGS: No significant interval change. IMPRESSION: Stable chest tube, postop findings. No sizable pneumothorax or pleural effusion.
[2017-01-14] MEDS: HEPARIN SODIUM,PORCINE 5,000 UNIT/ML 1 ML VIAL SQ SCH ×2 (08:39→19:52)
[2017-01-14] MEDS: METOPROLOL TARTRATE 12.5 MG TAB PO SCH ×2 (08:39→19:53)
[2017-01-14] MEDS: ASPIRIN 81 MG CHEW PO SCH (08:40)
[2017-01-14] MEDS: CITALOPRAM HYDROBROMIDE 20 MG TAB PO SCH ×2 (08:40→19:52)
[2017-01-14] MEDS: NICOTINE 21MG/24HR PATCH TRANSDERM SCH (08:40)
--- NOTE | 2017-01-14 08:40 | CDI ---
In responding to this query, please exercise your independent professional judgment. The [facility] Coding Staff and Clinical Documentation Specialists appreciate your assistance in clarifying documentation, maintaining compliance with coding guidelines, accurately documenting patients condition and capturing severity of illness. The fact that a question is asked does not imply that any particular answer is desired or expected. Communication forms are a method of clarifying documentation and are not made part of the Legal Health Record. Thank you in advance for your clarification. Last Revision, Aug 2016 Juan Gupta [address] [place] [address] Documentation Clarification Form Date: 01/14/2017 8:06:00 AM From: Jodie Lopez RN, CDS Admit Date: 01/12/2017 8:17:00 AM Patient Name: Chris Ortiz Visit Number: [id number] Dr. Talha Romero MD, 61 year old patient admitted for Non-small cell lung carcinoma squamous cell type. A Robotic assisted right upper lobectomy and mediastinal lymph node dissection was performed on 01/12/2017. A chest tube was inserted during surgery. Patient is currently receiving O2 /4L via nasal cannula with O2 saturation ranging from 91-95%. Patient is a current every day smoker. Acute hypoxic resp failure from recent surgery currently on 4L supplemental o2 is documented in the Medical consult note. Patients Admitting Diagnosis: Lung Cancer Right Upper Lobe Post-Operative Diagnosis: Same Procedure performed: Robotic-assisted thorascopic right upper lobectomy with mediastinal lymph node dissection History/Risk Factors: Current every day smoker, Sleep apnea, COPD, Alcoholism as patient drinks approximately a pint of vodka every other day Clinical Indicators: VS: 97.9 107 20 179/82 97, O2 saturation 91-95%, Nursing assessment: Lung sounds clear, diminished, respirations normal non-labored Treatment: O2/4L, duoneb, Incentive Spirometer, Pulmonary consult In order to accurately reflect this patients severity of illness, please clarify if the post-operative diagnosis is: An expected post-procedural or post-surgical condition An unexpected post-procedural or post-surgical condition, related to surgical care Other, please specify Unable to determine Please document in your progress notes and discharge summary in order to capture severity of illness and risk of mortality. Include clinical findings that support your diagnosis. FYI: Press F11 to launch patient chart Place X here if this finding has no clinical significance, is not applicable or if you are not able to provide any additional documentation. ZULMAD
[2017-01-14 08:41] LABS: Anion Gap 10 mmol/L; Blood Urea Nitrogen 12 mg/dL (9-20); Calcium 8.6 mg/dL (8.4-10.2); Carbon Dioxide 26 mmol/L (22-30); Chloride 101 mmol/L (98-107); Glucose 143 mg/dL (74-99); Non-African American GFR(MDRD) >60 (>60 ml/min/1.73 sqM); Potassium 4.1 mmol/L (3.5-5.1); Sodium 137 mmol/L (137-145)
[2017-01-14] MEDS: ALPRAZolam 0.5 MG TAB PO SCH ×2 (08:43→19:52)
--- NOTE | 2017-01-14 11:37 | P.PN ---
Progress Note - Text CV Surgery Nursing Principal diagnosis: Lung cancer right upper lobe. POD #2 robotic assisted thoracoscopic right upper lobectomy with mediastinal lymph node dissection. Patient awake and alert, no distress noted, no specific complaints. He is sitting up to the bedside chair. Complaining of pain to his right chest with deep breathing and coughing, rating his pain 9 out of 10 on the pain scale. Patient awake and alert, no distress noted, no specific complaints. He is sitting up to bedside chair. Patient was ambulated in the hallway 250 feet with minimal assistance, tolerated well. Vital Signs: Afebrile Vital Signs - 24 hr 01/13/17 01/13/17 01/13/17 11:22 11:31 12:00 Temperature Pulse Rate 84 82 Pulse Rate [ 94 Pulse Oximetery ] Respiratory 16 Rate Blood Pressure 114/71 [Left Arm Supine] O2 Sat by Pulse 95 Oximetry 01/13/17 01/13/17 01/13/17 15:29 15:40 16:00 Temperature 97.0 F L Pulse Rate 80 80 Pulse Rate [ 89 Pulse Oximetery ] Respiratory 20 Rate Blood Pressure 122/67 [Left Arm Supine] O2 Sat by Pulse 94 L Oximetry 01/13/17 01/13/17 01/13/17 19:34 19:43 20:00 Temperature 98.3 F Pulse Rate 89 84 Pulse Rate [ 86 Pulse Oximetery ] Respiratory 18 Rate Blood Pressure 120/68 [Left Arm Supine] O2 Sat by Pulse 91 L Oximetry 01/14/17 01/14/17 01/14/17 00:00 04:00 07:52 Temperature 98.8 F 97.9 F Pulse Rate 76 Pulse Rate [ 80 74 Pulse Oximetery ] Respiratory 18 17 Rate Blood Pressure 90/51 101/57 [Left Arm Supine] O2 Sat by Pulse 94 L 95 Oximetry 01/14/17 01/14/17 08:00 08:07 Temperature 97.6 F Pulse Rate 80 Pulse Rate [ 92 Pulse Oximetery ] Respiratory 20 Rate Blood Pressure 108/52 [Left Arm Supine] O2 Sat by Pulse 95 Oximetry Labs: [facility] 01/14/17 07:40 Sodium 137 Potassium 4.1 Chloride 101 Carbon Dioxide 26 BUN 12 Creatinine 0.58 L Glucose 143 H Calcium 8.6 Lungs: Essentially clear throughout, diminished to his bilateral bases, right greater than left. Respirations are symmetrical and unlabored. O2 sat: 95% on 2 L nasal cannula. I/S: 3709-6351 mL, reviewed with the patient the importance of using his incentive spirometry every hour while awake. Patient did give a good return demonstration on his incentive spirometry. Heart: S1S2, regular rhythm and rate, negative for S3, gallop or murmur. Remote telemetry showing normal sinus rhythm heart rate 84. Right posterior and lateral chest incisions clean dry and well approximated. No drainage noted. Dressing dry and intact. There is a small amount of subcutaneous emphysema felt to his right lateral chest surrounding his chest tube site. Knee-high sequential devices in place to his bilateral lower extremities. Abdomen: Soft, nontender. Positive bowel sounds present in all 4 quadrants. Positive bowel movement this a.m. U/O: Adequate. Chest Tubes: Right pleural chest tube without air leak, remains to waterseal. Draining thin serosanguineous drainage. 120 mL output in the last 8 hours, 200 mL output in the last 24 hours. 24 hr Total: Intake & Output 01/12/17 01/13/17 01/14/17 01/15/17 06:59 06:59 06:59 06:59 Intake Total 4037 2411 240 Output Total 3135 1170 60 Balance 902 1241 180 Weight 111 kg 100.4 kg Active Medications Hydrocodone Bitart/Acetaminophen ([place] 5-325) 1 each PO Q4HR PRN PRN Reason: Pain Scale 1 to 5 Last Admin: 01/13/17 08:58 Dose: 1 each Hydrocodone Bitart/Acetaminophen ([place] 5-325) 2 each PO Q4HR PRN PRN Reason: Pain Scale 6 to 10 Last Admin: 01/14/17 05:22 Dose: 2 each Albuterol/Ipratropium (Duoneb 0.5 Mg-3 Mg/3 Ml Soln) 3 ml IH RT-Q1H PRN PRN Reason: Shortness Of Breath Or Wheezing Albuterol/Ipratropium (Duoneb 0.5 Mg-3 Mg/3 Ml Soln) 3 ml IH RT-QID [facility] Last Admin: 01/14/17 07:52 Dose: 3 ml Alprazolam (Xanax) 0.5 mg PO BID [facility] Last Admin: 01/14/17 08:43 Dose: 0.5 mg Aspirin (Aspirin) 81 mg PO DAILY [facility] Last Admin: 01/14/17 08:40 Dose: 81 mg Atorvastatin Calcium (Lipitor) 40 mg PO HS [facility] Last Admin: 01/13/17 21:46 Dose: 40 mg Citalopram Hydrobromide (Celexa) 20 mg PO BID [facility] Last Admin: 01/14/17 08:40 Dose: 20 mg Heparin Sodium (Porcine) (Heparin) 5,000 unit SQ Q12HR [facility] Last Admin: 01/14/17 08:39 Dose: 5,000 unit Ketorolac Tromethamine (Toradol) 15 mg IVP Q6HR [facility] Stop: 01/17/17 15:09 Last Admin: 01/14/17 06:23 Dose: 15 mg Metoclopramide HCl (Reglan) 10 mg IVP Q4HR PRN PRN Reason: Nausea And Vomiting Metoprolol Tartrate (Lopressor) 12.5 mg PO BID [facility] Last Admin: 01/14/17 08:39 Dose: 12.5 mg Nicotine (Habitrol 21mg/24hr Patch) 1 patch TRANSDERM DAILY [facility] Last Admin: 01/14/17 08:40 Dose: 1 patch Ondansetron HCl (Zofran) 4 mg IVP Q8HR PRN PRN Reason: Nausea And Vomiting Trazodone HCl (Desyrel) 150 mg PO HS [facility] Last Admin: 01/13/17 21:47 Dose: 150 mg Plan: 1. We will remove his right pleural chest tube. 2. Pain control per when necessary orders. 3. Increase and encourage activity as tolerated. Physical therapy following. 4. Wean oxygen as tolerated, Dr. Phillip recommendations per pulmonary management. 5. GI/DVT prophylaxis in place. 6. We will get a repeat chest x-ray in the a.m tomorrow.. 7. Pathology results pending. 8. Further recommendations as patient progresses. 9. Discharge planning in place, anticipate discharge home possibly tomorrow. Right pleural chest tube removed without incident, 4 x 4 gauze dressing with Vaseline impregnated gauze placed over insertion site and secured with tape. The chest tube was removed at 11:30 AM today.
--- NOTE | 2017-01-14 13:16 | P.PN ---
Subjective This is a 61-year-old male patient with a right upper lobe mass and biopsy- proven non-small cell lung cancer of a squamous cell type.. Metastatic workup was essentially negative. The patient came in for an elective lobectomy to be done by Dr. Bipin Reed. The surgery was done today. This was a robotic- assisted thoracoscopic right upper lobe resection with mediastinal lymph node dissection. The lymph nodes that were dissected involved are 11, R 10, R8, R for and R 7. Estimated blood loss is 300 mL. The patient had no significant perioperative complications and postop the patient got moved to the [facility] surgical floor. The chest x-ray postop showed right-sided chest tube was in place without evidence of any pneumothorax. There is some background emphysema. The right hilum was a bit prominent. Hemodynamically patient is stable. He is on Dilaudid 0.5 mg every 5 hours in the. A basis for pain control and he is also on [place] 5/325 every 4 hours for pain control. He is on bronchodilators. Incentive spirometer was also given. Hemodynamically stable. Currently on 2 L of oxygen by nasal cannula with a saturation of 97%. The patient's preoperative FEV1 is no other of 2.6 L which is 70% of predicted. Diffusion capacity was 72% of predicted. On 01/13/2017 I'm seeing this patient in follow-up. The patient is doing well. He is using incentive spirometer. He is pulling approximately 500 mL. Chest tube has drained only 400 mL since yesterday. The chest tube was placed to a waterseal. No evidence of any air leak. Chest x-ray from today shows postsurgical changes in the chest tube remains in a good location. Hemodynamically stable. Pain is under decent control for now. On 01/14/2017 I'm seeing the patient in follow-up. The patient is doing well. No evidence of any air leak on the chest tube. The output from the chest tube is minimal. Chest x-ray shows no evidence of any pneumothorax. Pain is under good control. Hemodynamically stable. Using incentive spirometer. Using albuterol neb last treatment [id number] in conjunction with ipratropium bromide. He is also on heparin subcu for DVT prophylaxis. His emanating. No other significant events over the past 24 hours. Objective - Vital Signs Vital signs: Vital Signs Temp 97.0 F L 01/14/17 12:00 Pulse 80 01/14/17 12:03 Resp 18 01/14/17 12:00 BP 110/62 01/14/17 12:00 Pulse Ox 96 01/14/17 12:00 Intake & Output 01/13/17 01/14/17 01/14/17 18:59 06:59 18:59 Intake Total 2211 200 240 Output Total 650 520 60 Balance 1561 -320 180 Weight 100.4 kg Intake: IV 900 Dextrose 5%-0.45% NaCl 1, 800 000 ml @ 40 mls/hr IV . Q24H [facility] Rx#:[id number] ceFAZolin 2 gm In Sodium 100 Chloride 0.9% 100 ml @ 100 mls/hr IVPB Q8HR [facility] Rx#:[id number] Oral 1311 200 240 Output: Chest Tube Drainage 120 60 Chest Tube Right Anterior 120 60 Chest Drainage 50 Lower Lateral Chest 50 Urine 600 400 Other: Voiding Method Indwelling Catheter Urinal Urinal # Voids 1 - Exam The patient appeared well nourished and normally developed. Vital signs as documented. Head exam is unremarkable. No scleral icterus or corneal arcus noted. Neck is without jugular venous distension, thyromegaly, or carotid bruits. Carotid upstrokes are brisk bilaterally. Lungs are clear to auscultation and percussion. There is a right-sided chest tube in place without evidence of any air leak. Surgical wound site is dry clean and intact. Cardiac exam reveals the PMI to be normally sized and situated. Rhythm is regular. First and second heart sounds normal. No murmurs, rubs or gallops. Abdominal exam reveals normal bowel sounds, no masses, no organomegaly and no aortic enlargement. Extremities are nonedematous and both femoral and pedal pulses are normal. - Labs CBC & Chem 7: 01/13/17 05:25 01/14/17 07:40 Labs: Abnormal Lab Results - Last 24 Hours (Table) 01/14/17 Range/Units 07:40 Creatinine 0.58 L (0.66-1.25) mg/dL Glucose 143 H (74-99) mg/dL Assessment and Plan Plan: Assessment 1 cavitating right upper lobe squamous cell carcinoma status post robotic- assisted right upper lobe resection with mediastinal lymph node dissection he had patient is postop day #2 2 postoperative right-sided chest tube tomorrow no evidence of pneumothorax or air leak. The chest x-ray remains stable with postsurgical changes and there is no evidence of any pneumothorax. 3 COPD with a preop FEV1 of 32% of predicted 4 alcoholism as the patient drinks approximately a pint of vodka every other day 5 smoker 6 hyperlipidemia 7 depression Plan Encourage use of incentive spirometer. The right-sided chest tube will be removed. We'll increase the level of activity as tolerated. Wean FiO2 as tolerated to maintain a saturation above 90%. Continue DuoNeb neb treatments on the clock. Adequate pain control was provided. Heparin subcu for DVT prophylaxis. We'll reevaluate this patient in a.m. Possible discharge in the next 24-48 hours based on his overall clinical response. Awaiting final path report. No signs of delirium tremens at this point.
--- NOTE | 2017-01-14 16:56 | P.PN ---
Subjective 61-year-old Male who underwent outpatient workup was diagnosed with squamous cell lung cancer was brought into the hospital for the mediastinal lymph node dissection and right upper lobectomy Patient underwent a PET scan which was essentially negative . Patient is postoperative day 1 status post lobectomy currently has a right- sided chest tube in place has 300 mL of blood loss Currently states that he has significant amount of pain around the chest tube site Denies having any headaches blurry vision chest pain other than those described above abdominal pain nausea vomiting or diarrhea Patient states to be doing better denies having any pain. Chest tube has been removed No headaches fevers nausea vomiting diarrhea is on minimal oxygen today Objective - Vital Signs Vital signs: Vital Signs Temp 96.7 F L 01/14/17 16:00 Pulse 81 01/14/17 16:00 Resp 18 01/14/17 16:00 BP 110/61 01/14/17 16:00 Pulse Ox 92 L 01/14/17 16:00 Intake & Output 01/13/17 01/14/17 01/14/17 18:59 06:59 18:59 Intake Total 2211 200 596 Output Total 650 520 410 Balance 1561 -320 186 Weight 100.4 kg Intake: IV 900 Dextrose 5%-0.45% NaCl 1, 800 000 ml @ 40 mls/hr IV . Q24H [facility] Rx#:[id number] ceFAZolin 2 gm In Sodium 100 Chloride 0.9% 100 ml @ 100 mls/hr IVPB Q8HR [facility] Rx#:[id number] Oral 1311 200 596 Output: Chest Tube Drainage 120 60 Chest Tube Right Anterior 120 60 Chest Drainage 50 Lower Lateral Chest 50 Urine 600 400 350 Other: Voiding Method Indwelling Catheter Urinal Urinal # Voids 1 1 - Exam Physical exam Gen. appearance oriented 3 in no distress Neck is supple no JVD Lungs good air entry clear to auscultation diminished breath sounds of the right base Heart S1-S2 heard regular rate and rhythm no murmurs appreciated Abdomen is soft nontender no organomegaly bowel sounds are intact Neurologically cranial nerves II-12 grossly intact no focal motor or sensory deficits noted Skin no abnormalities appreciated - Labs CBC & Chem 7: 01/13/17 05:25 01/14/17 07:40 Labs: Abnormal Lab Results - Last 24 Hours (Table) 01/14/17 Range/Units 07:40 Creatinine 0.58 L (0.66-1.25) mg/dL Glucose 143 H (74-99) mg/dL Assessment and Plan Plan: #1 squamous cell lung cancer status post right upper lobectomy and mediastinal lymph node dissection #2 dyslipidemia #3 hypertension #4 anxiety #5 acute hypoxic respiratory failure as expected from the surgery improvement Plan Await biopsy results Further care depending on the staging of the lung cancer IS DVT prophylaxis
[2017-01-14] MEDS: ATORVASTATIN 40 MG TAB PO SCH (19:52)
[2017-01-14] MEDS: traZODone HCL 50 MG TAB PO SCH (19:53)
[2017-01-15] MEDS: HYDROcodone/APAP 5-325MG 1 EACH TAB PO PRN ×2 (04:28→09:59)
[2017-01-15] MEDS: KETOROLAC 30 MG/ML 1 ML VIAL IVP SCH ×2 (05:52→11:50)
[2017-01-15] MEDS: IPRATROPIUM-ALBUTEROL 3 ML NEB IH SCH ×2 (07:42→11:24)
--- NOTE | 2017-01-15 07:46 | XR ---
EXAMINATION TYPE: XR chest 2V DATE OF EXAM: 01/15/2017 COMPARISON: Prior chest x-ray 01/14/2017 HISTORY: Postop right upper lobectomy TECHNIQUE: Frontal and lateral views of the chest are obtained. FINDINGS: There is been interval removal of the right-sided chest tube. Prominence in the right jadyn r region is stable. No evident pneumothorax or pleural effusion. Minimal basilar atelectatic changes suspected on the left. Heart size is stable. There are overlying cardiac leads. IMPRESSION: No evident complication status post chest tube removal
--- NOTE | 2017-01-15 07:57 | P.PN ---
Subjective Principal diagnosis: Lung cancer right upper lobe POD #3 robotic assisted thoracoscopic right upper lobectomy with mediastinal lymph node dissection. Patient currently sitting up in the chair in no acute distress. Right pleural chest tube discontinued yesterday. Chest x-ray demonstrates no pneumothorax. Patient still complains of right lateral rib pain. Objective - Vital Signs Vital signs: Vital Signs Temp 98.9 F 01/15/17 04:00 Pulse 84 01/15/17 07:44 Resp 18 01/15/17 04:00 BP 114/63 01/15/17 04:00 Pulse Ox 94 L 01/15/17 07:44 Intake & Output 01/14/17 01/15/17 01/15/17 18:59 06:59 18:59 Intake Total 836 20 Output Total 410 450 Balance 426 -430 Weight 102.1 kg Intake: IV 20 .9 20 Oral 836 Output: Chest Tube Drainage 60 Chest Tube Right Anterior 60 Chest Urine 350 450 Other: Voiding Method Urinal Urinal # Voids 1 - Constitutional General appearance: Present: cooperative, no acute distress - Respiratory Details: Lungs sounds diminished bilaterally. Respirations even, nonlabored. Currently on room air with oxygen saturation 93%. Able to achieve 1250 mL on his incentive spirometry. Effective cough. - Cardiovascular Details: S1, S2 present. Regular rate and rhythm, normal sinus rhythm on telemetry. - Gastrointestinal Gastrointestinal Comment(s): Abdomen soft, nontender, nondistended. Active bowel sounds 4 quadrants. Tolerating diet. - Genitourinary Genitourinary Comment(s): Continues to void clear, yellow urine per urinal. - Integumentary Integumentary Comment(s): Right lateral chest wall well approximated and covered with dry intact dressing. - Musculoskeletal Musculoskeletal: Present: gait normal, strength equal bilaterally - Psychiatric Psychiatric: Present: A&O x's 3, appropriate affect, intact judgment & insight - Allied health notes Allied health notes reviewed: nursing - Labs CBC & Chem 7: 01/13/17 05:25 01/14/17 07:40 Labs: Abnormal Lab Results - Last 24 Hours (Table) 01/14/17 Range/Units 07:40 Creatinine 0.58 L (0.66-1.25) mg/dL Glucose 143 H (74-99) mg/dL - Imaging and Cardiology Chest x-ray: image reviewed Assessment and Plan (1) Mass of upper lobe of right lung Status: Acute (2) COPD (chronic obstructive pulmonary disease) Status: Acute (3) Tobacco abuse Status: Acute Plan: 1. Continue to encourage incentive spirometry use. 2. Pain control with ordered pain medication. 3. Pathology results still pending. Will follow. 4. Likely will discharge to home this afternoon with follow-up appointments for Dr. Aguilar and Dr. Reed. Time with Patient: Greater than 30
[2017-01-15] MEDS: METOPROLOL TARTRATE 12.5 MG TAB PO SCH (08:15)
[2017-01-15] MEDS: NICOTINE 21MG/24HR PATCH TRANSDERM SCH (08:15)
[2017-01-15] MEDS: ALPRAZolam 0.5 MG TAB PO SCH (08:15)
[2017-01-15] MEDS: ASPIRIN 81 MG CHEW PO SCH (08:16)
[2017-01-15] MEDS: HEPARIN SODIUM,PORCINE 5,000 UNIT/ML 1 ML VIAL SQ SCH (08:16)
[2017-01-15] MEDS: CITALOPRAM HYDROBROMIDE 20 MG TAB PO SCH (08:16)
[2017-01-15 08:17] VITALS: TEMP 97.7
[2017-01-15 11:53] VITALS: BP 121/62; PULSE 84; RESP 16
--- NOTE | 2017-01-15 15:26 | P.PN ---
Subjective This is a 61-year-old male patient with a right upper lobe mass and biopsy- proven non-small cell lung cancer of a squamous cell type.. Metastatic workup was essentially negative. The patient came in for an elective lobectomy to be done by Dr. Bipin Reed. The surgery was done today. This was a robotic- assisted thoracoscopic right upper lobe resection with mediastinal lymph node dissection. The lymph nodes that were dissected involved are 11, R 10, R8, R for and R 7. Estimated blood loss is 300 mL. The patient had no significant perioperative complications and postop the patient got moved to the [facility] surgical floor. The chest x-ray postop showed right-sided chest tube was in place without evidence of any pneumothorax. There is some background emphysema. The right hilum was a bit prominent. Hemodynamically patient is stable. He is on Dilaudid 0.5 mg every 5 hours in the. A basis for pain control and he is also on [place] 5/325 every 4 hours for pain control. He is on bronchodilators. Incentive spirometer was also given. Hemodynamically stable. Currently on 2 L of oxygen by nasal cannula with a saturation of 97%. The patient's preoperative FEV1 is no other of 2.6 L which is 70% of predicted. Diffusion capacity was 72% of predicted. On 01/13/2017 I'm seeing this patient in follow-up. The patient is doing well. He is using incentive spirometer. He is pulling approximately 500 mL. Chest tube has drained only 400 mL since yesterday. The chest tube was placed to a waterseal. No evidence of any air leak. Chest x-ray from today shows postsurgical changes in the chest tube remains in a good location. Hemodynamically stable. Pain is under decent control for now. On 01/14/2017 I'm seeing the patient in follow-up. The patient is doing well. No evidence of any air leak on the chest tube. The output from the chest tube is minimal. Chest x-ray shows no evidence of any pneumothorax. Pain is under good control. Hemodynamically stable. Using incentive spirometer. Using albuterol neb last treatment [id number] in conjunction with ipratropium bromide. He is also on heparin subcu for DVT prophylaxis. His emanating. No other significant events over the past 24 hours. On 01/15/2017 I'm seeing the patient in follow-up. He is doing well. He is off oxygen. Is ambulating. No respiratory difficulties. Pain is under good control. No nausea. No vomiting. No abdominal pain. No chest pain. Surgical wound site is clean and intact. The final pathology report is not out yet. The patient will be discharged home today to be followed up on outpatient basis regarding the lung biopsy and further advice regarding treatment. Smoking cessation counseling was done. Nicotine patches will be offered. Objective - Vital Signs Vital signs: Vital Signs Temp 97.7 F 01/15/17 08:10 Pulse 84 01/15/17 11:53 Resp 16 01/15/17 11:57 BP 121/62 01/15/17 11:53 Pulse Ox 93 L 01/15/17 11:53 Intake & Output 01/14/17 01/15/17 01/15/17 18:59 06:59 18:59 Intake Total 836 20 Output Total 410 450 300 Balance 426 -430 -300 Weight 102.1 kg Intake: IV 20 .9 20 Oral 836 Output: Chest Tube Drainage 60 Chest Tube Right Anterior 60 Chest Urine 350 450 300 Other: Voiding Method Urinal Urinal Urinal # Voids 1 - Exam The patient appeared well nourished and normally developed. Vital signs as documented. Head exam is unremarkable. No scleral icterus or corneal arcus noted. Neck is without jugular venous distension, thyromegaly, or carotid bruits. Carotid upstrokes are brisk bilaterally. Lungs are clear to auscultation and percussion. Surgical wound site is dry clean and intact. Cardiac exam reveals the PMI to be normally sized and situated. Rhythm is regular. First and second heart sounds normal. No murmurs, rubs or gallops. Abdominal exam reveals normal bowel sounds, no masses, no organomegaly and no aortic enlargement. Extremities are nonedematous and both femoral and pedal pulses are normal. - Labs CBC & Chem 7: 01/13/17 05:25 01/14/17 07:40 Assessment and Plan Plan: Assessment 1 cavitating right upper lobe squamous cell carcinoma status post robotic- assisted right upper lobe resection with mediastinal lymph node dissection he had patient is postop day #3 2 postoperative skeletal chest wall pain. The pain is under good control. The chest x-ray remains stable with postsurgical changes and there is no evidence of any pneumothorax. 3 COPD 4 alcoholism as the patient drinks approximately a pint of vodka every other day 5 smoker 6 hyperlipidemia 7 depression Plan Encourage use of incentive spirometer. Patient will be discharged home today. Follow-up in the office. We'll discuss treatment and further management based on the postoperative pathologic results. Nicotine patch. Use incentive spirometer. Follow-up with pulmonary.
--- NOTE | 2017-01-16 08:54 | P.DS ---
Providers Date of admission: 01/12/17 08:17 Attending physician: Bipin Reed Consults: 01/12/17 15:20 Consult Physician Routine Consulting Provider: Dm Phillip Consult Reason/Comments: known to you, post op care Do you want consulting provider notified?: Yes 01/12/17 16:25 Consult Physician Routine Consulting Provider: Susanne Burt Consult Reason/Comments: medical management Do you want consulting provider notified?: Yes Primary care physician: Stated None Hospital Course: FINAL DIAGNOSIS: 1.[ Lung cancer right upper lobe, non-small cell lung cancer of squamous cell type] 2.[ Hypertension] 3.[ Hyperlipidemia] 4.[ Obstructive sleep apnea] 5.[ Gastroesophageal reflux disease] 6.[ Depression] 7.[ History of EtOH abuse] 8.[ Chronic nicotine dependence] PRINCIPAL PROCEDURE: 1.[ Robotic assisted thoracoscopic right upper lobectomy with mediastinal lymph node dissection.] HISTORY OF PRESENT ILLNESS: [This is a 61-year-old gentleman with a previous history of hypertension, hyperlipidemia, obstructive sleep apnea, depression, and chronic nicotine dependence. He was recently found to have a large right upper lobe mass on a chest x-ray. Subsequently the patient underwent a computed tomography scan of his chest and PET scan which did demonstrate hyper metabolic uptake to his right upper lobe mass with no evidence of adenopathy. The patient also underwent a biopsy of his right lung mass which was essentially negative for metastatic workup. He was referred to Dr. Bipin Reed for evaluation for surgical intervention. The above-mentioned studies were reviewed with the patient by Dr. Reed an elective robotic-assisted thoracoscopic right upper lobectomy was recommended.] HOSPITAL COURSE:[ The patient was admitted to the hospital and after obtaining consent was taken to the operating room where Dr. Reed performed an elective robotic-assisted thoracoscopic right upper lobectomy with mediastinal lymph node dissection. He subsequently recovered and transferred to [address] [place] [address] for further monitoring and rehabilitation. The patient was hemodynamically stable, his right pleural chest tube was discontinued. Discharge instructions were reviewed with the patient and his family. COMPLICATIONS: [There were no postoperative complications.] CONSULTATIONS: 1.[ Dr. Dm Phillip for pulmonary management.] 2.[ Dr. Romero for medical management] DISCHARGE INSTRUCTIONS: 1. No driving for 4 weeks, or until physician gives their ok. 2. The patient should sleep in their own bed, no medical bed needed. 3. DEREK hose are to be worn for 30 days or until physician discontinues. 5. Continue pain control per as needed orders. 6. Continue with incentive spirometry every hour while awake. 7. Please notify surgeon/nurse practitioner for temperature greater than 101 F or purulent drainage from incisions 8. Importance of smoking cessation was reviewed with the patient and a smoking cessation pamphlet was given to the patient. 9. His pathology results are still pending and will be reviewed with the patient on an outpatient basis. Plan - Discharge Summary New Discharge Prescriptions: New HYDROcodone/APAP 5-325MG [[place] 5-325] 1 - 2 each PO Q6HR PRN #60 tab PRN Reason: Pain Scale 6 To 10 Nicotine 21Mg/24Hr Patch [Habitrol] 1 patch TRANSDERM DAILY patch Continue ALPRAZolam [Xanax] 0.5 mg PO BID Albuterol Nebulized [Ventolin Nebulized] 2.5 mg INHALATION RT-TID PRN PRN Reason: Shortness Of Breath Ranitidine HCl [Zantac] 150 mg PO BID PRN PRN Reason: Heartburn Metoprolol Tartrate [Lopressor] 12.5 mg PO BID Citalopram Hydrobromide [CeleXA] 20 mg PO BID Atorvastatin [Lipitor] 40 mg PO HS Aspirin 81 mg PO DAILY traZODone HCL 150 mg PO HS Ipratropium Nebulized [Atrovent Nebulized] 0.5 mg INHALATION RT-QID Discontinued Promethaz-Cod 6.25-10 mg/5 ml [Phenergan with Codeine] 5 ml PO Q6HR PRN PRN Reason: Cough Amoxicillin 500 mg PO TID Discharge Medication List ALPRAZolam [Xanax] 0.5 mg PO BID 08/20/16 [History] Albuterol Nebulized [Ventolin Nebulized] 2.5 mg INHALATION RT-TID PRN 08/20/16 [ History] Ranitidine HCl [Zantac] 150 mg PO BID PRN 10/30/16 [History] Aspirin 81 mg PO DAILY 01/06/17 [History] Atorvastatin [Lipitor] 40 mg PO HS 01/06/17 [History] Citalopram Hydrobromide [CeleXA] 20 mg PO BID 01/06/17 [History] Metoprolol Tartrate [Lopressor] 12.5 mg PO BID 01/06/17 [History] traZODone HCL 150 mg PO HS 01/06/17 [History] Ipratropium Nebulized [Atrovent Nebulized] 0.5 mg INHALATION RT-QID 01/07/17 [ History] HYDROcodone/APAP 5-325MG [[place] 5-325] 1 - 2 each PO Q6HR PRN #60 tab 01/15/17 [ Rx] Nicotine 21Mg/24Hr Patch [Habitrol] 1 patch TRANSDERM DAILY patch 01/15/17 [Rx] Follow up Appointment(s)/Referral(s): Bipin Reed MD [STAFF PHYSICIAN] - 02/04/17 9:45 am Dm Phillip MD [STAFF PHYSICIAN] - 02/16/17 1:00 pm Patient Instructions/Handouts: Lung Lobectomy (DC) Activity/Diet/Wound Care/Special Instructions: DISCHARGE INSTRUCTIONS: 1. No driving for 2 weeks, or until physician gives their ok. 2. The patient should sleep in their own bed, no medical bed needed. 3. Stairs are not an issue. If the bedroom is upstairs, it is advised that the patient go up at night and down in the morning for the first week. Go slowly, using handrail and take 1 step at a time. 4. No lifting, pushing, or pulling more than 10 pounds for 4 weeks. The physician will advise of any restriction changes. 5. Continue pain control per as needed orders. 6. Continue with incentive spirometry until otherwise directed by the physician. 7. Must shower daily using liquid antibacterial soap and a separate white washcloth for each individual incision. 8. Routine incision care. No powders, lotions, ointments on incisions. 9. Please call surgeon/OIL EXTRACTOR for temp greater than 101 F or purulent drainage from incisions. Discharge Disposition: HOME SELF-CARE
== END 2017-01-15 14:30 | disposition home or self-care (01) | DRG 163 ==
LOC: 2ORWHC 08:17 → 6SEL 14:38
PROVIDERS: ADMIT Thoracic Surgery (Cardiothoracic Vascular Surgery); ATTEND Thoracic Surgery (Cardiothoracic Vascular Surgery)
PROC: 07B74ZX Excision of Thorax Lymphatic, Percutaneous Endoscopic Approach, Diagnostic (ICD-10-PCS; 2017-01-12)
PROC: 8E0W4CZ Robotic Assisted Procedure of Trunk Region, Percutaneous Endoscopic Approach (ICD-10-PCS; 2017-01-12)
PROC: 0BTC4ZZ Resection of Right Upper Lung Lobe, Percutaneous Endoscopic Approach (ICD-10-PCS; principal; 2017-01-12 10:15)
DX: C34.11 Malignant neoplasm of upper lobe, right bronchus or lung (principal); J96.01 Acute respiratory failure with hypoxia; J94.8 Other specified pleural conditions; I10 Essential (primary) hypertension; R59.0 Localized enlarged lymph nodes; I25.10 Atherosclerotic heart disease of native coronary artery without angina pectoris; J44.9 Chronic obstructive pulmonary disease, unspecified; G47.33 Obstructive sleep apnea (adult) (pediatric); K21.9 Gastro-esophageal reflux disease without esophagitis; E78.5 Hyperlipidemia, unspecified; F10.20 Alcohol dependence, uncomplicated; F41.9 Anxiety disorder, unspecified; F17.210 Nicotine dependence, cigarettes, uncomplicated; F32.9 Major depressive disorder, single episode, unspecified; Z79.899 Other long term (current) drug therapy; Z79.82 Long term (current) use of aspirin; Z91.010 Allergy to peanuts; Z80.0 Family history of malignant neoplasm of digestive organs; Z71.6 Tobacco abuse counseling; Z87.11 Personal history of peptic ulcer disease; Z79.891 Long term (current) use of opiate analgesic
CPT/HCPCS: 71010; 71020; 80048; 80053; 85025; 86850; 86900; 86901; 88305; 88309; 88313; 88341; 88342; 94640; 94760

== ENCOUNTER → 2017-02-16 | Outpatient (CLI) | payer BC ==
--- NOTE | 2017-02-16 09:18 | CT ---
EXAMINATION TYPE: CT chest w con DATE OF EXAM: 02/16/2017 COMPARISON: PET/CT dated 08/16/2016 HISTORY: Patient has no complaints at time of service. Follow up study for known lung CA. CT DLP: 374.1 mGycm. Automated Exposure Control for Dose Reduction was Utilized. TECHNIQUE: CT scan of the thorax is performed following with IV Contrast, patient injected with 100 mL of Omnipaque 300. FINDINGS: LUNGS: Surgical sutures are present around the margin of the mediastinum, hilum, and interlobar fissu re. Focal pleural thickening is seen at the interlobar fissure, likely reactive. Centrally fluid atte nuated nodular area is seen along the surgical plane measuring 1.3 cm, likely representing a loculate d fluid component. At the superior aspect of the right hilum there is also a hyperdense region measur ing 8.3 x 2.0 cm, likely vasculature and postsurgical scar. Three-vessel coronary artery calcificatio ns are present. Otherwise the lungs are grossly clear, there is new nodule or mass identified. Ther e is no pneumothorax seen. The tracheobronchial tree is patent. MEDIASTINUM: There are no greater than 1 cm hilar or mediastinal lymph nodes. No pericardial effusi on is seen. Three-vessel coronary artery calcifications are present. OTHER: No additional significant abnormality is seen. IMPRESSION: Status post resection of a right upper lobe pulmonary neoplasm with no new pulmonary nodu le. A small amount of intrafissural fluid and nodular components along the surgical site are seen. No dular components are favored to represent loculated fluid and surgical scarring rather than residual neoplasm. Attention on follow-up exams.
== END | disposition home or self-care (01) ==
LOC: RADCTMAIN 08:36
PROVIDERS: ATTEND Internal Medicine Hematology & Oncology
DX: R91.8 Other nonspecific abnormal finding of lung field (principal); Z90.2 Acquired absence of lung [part of]; Z98.890 Other specified postprocedural states; Z91.018 Allergy to other foods
CPT/HCPCS: 71260; Q9967

== ENCOUNTER → 2017-09-21 | Outpatient (CLI) | payer BC ==
[2017-09-21 12:09] LABS: Blood Urea Nitrogen 8 mg/dL (9-20)
--- NOTE | 2017-09-21 14:36 | CT ---
EXAMINATION TYPE: CT ChestAbdPelvis w con DATE OF EXAM: 09/21/2017 COMPARISON: 02/16/2017 HISTORY: Malignant neoplasm of upper right bronchus CT DLP: 2640 mGycm. Automated Exposure Control for Dose Reduction was Utilized. CONTRAST: CT scan of the thorax, abdomen and pelvis is performed with IV Contrast, patient injected with 100 mL of Omnipaque 300. FINDINGS: LUNGS: There is right hemithorax volume loss secondary to a right upper lobectomy with mediastinal cl ips. Intrafissural fluid is again noted. The previously seen areas of nodularity has decreased in the interim. No new pulmonary nodules or masses are identified. MEDIASTINUM: There are no greater than 1 cm hilar or mediastinal lymph nodes. Moderate three-vessel c oronary artery calcifications are incidentally noted. No pericardial effusion is seen. Nonenlarged left supraclavicular 5 mm short axis lymph node is unchanged on series 3 image 2. LIVER/GB: Liver is unremarkable. No evidence of cholelithiasis.. PANCREAS: No significant abnormality is seen. No pancreatic ductal dilatation. SPLEEN: No splenomegaly. ADRENALS: No nodularity or thickening. KIDNEYS: No significant abnormality is seen. BOWEL: Bowel is nondilated. Appendix is partially air-filled and within normal limits of size. GENITAL ORGANS: Prostate gland is enlarged and heterogenous with nodularity anteriorly and impression upon the urinary bladder. LYMPH NODES: No greater than 1cm abdominal or pelvic lymph nodes are appreciated. Scattered nonenlarg ed periaortic lymph nodes are seen. OSSEOUS STRUCTURES: No significant abnormality is seen. No new suspicious osseous lesions. OTHER: Moderate calcific atheromatous changes are seen of the abdominal aorta and its branches. IMPRESSION: 1. No evidence of visceral metastasis or osseous within chest, abdomen, or pelvis. 2. Postoperative changes of a right upper lobectomy with intrafissural fluid and decreased nodularity along the mediastinal border related to postsurgical change/fibrosis.
== END | disposition home or self-care (01) ==
LOC: RADCTMAIN 10:47
PROVIDERS: ATTEND Radiology Radiation Oncology
DX: C34.11 Malignant neoplasm of upper lobe, right bronchus or lung (principal); R91.8 Other nonspecific abnormal finding of lung field; Z90.2 Acquired absence of lung [part of]
CPT/HCPCS: 82565; 84520; 71260; 74177; 36415; Q9967

== ENCOUNTER → 2018-01-11 | Outpatient (CLI) | payer BC ==
[2018-01-11 08:55] LABS: Blood Urea Nitrogen 9 mg/dL (9-20)
--- NOTE | 2018-01-11 12:34 | CT ---
EXAMINATION TYPE: CT ChestAbdPelvis w con DATE OF EXAM: 01/11/2018 COMPARISON: 09/21/2017 and 02/16/2017 HISTORY: 62-year-old male Malignant neoplasm of upper lobe, Right bronchus TECHNIQUE: Contiguous axial scanning of the chest, abdomen, and pelvis performed with IV Contrast, pa tient injected with 100 ml mL of Isovue 300. Delayed images through the kidneys were obtained. Yarbrough l/sagittal reconstructions performed. CT DLP: 1914 mGycm Automated exposure control for dose reduction was used. FINDINGS: Chest: Heart is normal size without pericardial effusion. Extensive coronary vessel calcifications are prese nt and are a marker for coronary artery disease. No thoracic lymphadenopathy by CT size criteria. Post surgical changes of right upper lobectomy. Minimal nodularity along the fissure peripherally is improving from prior exam. Right apical opacity is unchanged and likely scarring. No new pulmonary nodules. No consolidation or pleural effusion. ABDOMEN: Subcentimeter hypodensity left hepatic too small for accurate CT characterization, probable tiny cyst . Portal venous system is patent. No blurry ductal dilatation. Gallbladder, adrenal glands, right kidney, spleen, and pancreas show no gross abnormal abnormality. Subcentimeter cortical-based hypodensity posterior left kidney unchanged, likely cyst. Scattered nonenlarged retroperitoneal lymph nodes are unchanged. No dilated small bowel, free fluid, or free air. Normal appendix. Oral contrast progressing to the sigmoid colon. Mild sigmoid colon diverticulosis. No inflammation. M ild stool burden. Pelvis: The prostate gland enlargement 4.8 cm. Mild circumferential bladder wall thickening. No abnormal flui d collection in the pelvis or pelvic lymphadenopathy. Bones: Stable sclerosis within the right posterior T12 vertebral body. No osseous destructive process. IMPRESSION: 1. REDEMONSTRATED POST SURGICAL CHANGES OF RIGHT UPPER LOBECTOMY WITH STABLE RIGHT APICAL OPACITY AND IMPROVING NODULARITY ALONG THE ADJACENT FISSURE. FINDINGS SUGGEST POSTTREATMENT CHANGE WITHOUT CONVI NCING EVIDENCE FOR RECURRENT DISEASE. 2. MILD SIGMOID DIVERTICULOSIS.
== END | disposition home or self-care (01) ==
LOC: RADCTMAIN 05:51
PROVIDERS: ATTEND Radiology Radiation Oncology
DX: C34.11 Malignant neoplasm of upper lobe, right bronchus or lung (principal); K57.30 Diverticulosis of large intestine without perforation or abscess without bleeding; R91.8 Other nonspecific abnormal finding of lung field; Z98.890 Other specified postprocedural states; Z90.2 Acquired absence of lung [part of]
CPT/HCPCS: 82565; 84520; 71260; 74177; 36415; Q9967

== ENCOUNTER → 2018-04-09 | Outpatient (CLI) | payer BC ==
--- NOTE | 2018-04-11 10:31 | CT ---
EXAMINATION TYPE: CT chest w con DATE OF EXAM: 04/09/2018 COMPARISON: 01/11/2018 HISTORY: History lung cancer, follow-up. CT DLP: 347.8 mGycm Automated exposure control for dose reduction was used. CONTRAST: CT scan of the chest is performed with IV Contrast, patient injected with 100 mL of Isovue M300. FINDINGS: LUNGS: Post surgical changes of right upper lobectomy. Apical pleural-based nodularity thickening is stable from prior exam. Changes of COPD are noted. Thickening along the right hilum. Peribronchial th ickening stable from the prior exam. There is no pleural effusion or pneumothorax seen. The tracheobronchial tree is patent. MEDIASTINUM: There are no greater than 1 cm hilar or mediastinal lymph nodes. No pericardial effusi on is seen. Coronary artery calcification noted. OTHER: Chronic rib deformities are noted. Mediport catheter seen. Structures of the upper abdomen ar e stable in appearance IMPRESSION: 1 stable postsurgical changes right upper lobectomy. Right apical nodularity is also sta ble and unchanged from the prior exam.
== END | disposition home or self-care (01) ==
LOC: RADCTMAIN 17:10
PROVIDERS: ATTEND Internal Medicine Hematology & Oncology
DX: C34.11 Malignant neoplasm of upper lobe, right bronchus or lung (principal); R91.1 Solitary pulmonary nodule; Z91.010 Allergy to peanuts; Z90.2 Acquired absence of lung [part of]
CPT/HCPCS: 71260; Q9967

== ENCOUNTER → 2018-10-07 | Outpatient (CLI) | payer BC ==
--- NOTE | 2018-10-07 13:47 | CT ---
EXAMINATION TYPE: CT chest w con DATE OF EXAM: 10/07/2018 COMPARISON: 04/09/2018 HISTORY: Follow up for lung CA CT DLP: 365.1 mGycm. Automated Exposure Control for Dose Reduction was Utilized. TECHNIQUE: CT scan of the thorax is performed following with IV Contrast, patient injected with 100 mL of . FINDINGS: LUNGS: There is postsurgical change of a right upper lobectomy with compensatory hypertrophy of the r ight middle lobe. Low-density along the postsurgical site is bandlike with thickening at the right melisa ng apex. Images are not obtained at the same level in comparison to prior of 04/09/2018 to create accu rate assessment of thickness measurement in comparison to the prior. However overall this appears sim ilar. Surrounding fibrosis is noted. Surgical clips are seen at the mediastinum with very mild surrou nding soft tissue density measuring up to 4 mm in thickness. No suspicious new right hilar mass or ad enopathy. No new pulmonary nodule or mass. No focal consolidation, pleural effusion or pneumothorax. MEDIASTINUM: There are no greater than 1 cm hilar or mediastinal lymph nodes. No pericardial effusi on is seen. Severe three-vessel coronary artery calcifications are seen. OTHER: Mild hepatic steatosis is noted. There are minimal degenerative changes of the spine. IMPRESSION: No new pulmonary nodule or mass in this patient status post right upper lobectomy. Bandli ke scarring in the right lung apex is similar to the prior of 04/09/2018. No new adenopathy.
== END | disposition home or self-care (01) ==
LOC: RADCTMAIN 12:44
PROVIDERS: ATTEND Internal Medicine Hematology & Oncology
DX: Z03.89 Encounter for observation for other suspected diseases and conditions ruled out (principal); C34.11 Malignant neoplasm of upper lobe, right bronchus or lung; Z90.2 Acquired absence of lung [part of]
CPT/HCPCS: 71260; Q9967

== ENCOUNTER 2019-03-28 00:20 | Observation (INO) | payer BC, OTHER ==
[2019-03-28 01:00] LABS: Basophils % (A) 0 %; Eosinophils # (A) 0.1 k/uL (0-0.7); Eosinophils % (A) 2 %; HCT 27.9 % (39.0-53.0); HGB 9.4 gm/dL (13.0-17.5); Lymphocytes # (A) 1.4 k/uL (1.0-4.8); Lymphocytes % (A) 15 %; MCH 32.8 pg (25.0-35.0); MCHC 33.8 g/dL (31.0-37.0); MCV 97.1 fL (80.0-100.0); Monocytes # (A) 0.5 k/uL (0-1.0); Monocytes % (A) 6 %; Neutrophils # (A) 6.7 k/uL (1.3-7.7); Neutrophils % (A) 76 %; Platelet Count 196 k/uL (150-450); RBC 2.87 m/uL (4.30-5.90); RDW 13.9 % (11.5-15.5); WBC 8.9 k/uL (3.8-10.6)
[2019-03-28] MEDS ORDERED: NALOXONE 0.4 MG/ML 1 ML VIAL IV PRN (01:02)
--- NOTE | 2019-03-28 01:04 | ED ---
General Adult HPI - General Chief complaint: Syncope Stated complaint: Near Syncope Time Seen by Provider: 03/28/19 00:24 Source: patient Mode of arrival: EMS Limitations: no limitations - History of Present Illness Initial comments: Chris is a 63-year-old gentleman who presents the emergency department today as a transfer from an outside facility for further management of likely upper GI bleed. Patient had presented to the outside facility today complaining of lightheadedness and what appeared to be orthostatic symptoms, while in the emergency department patient use the restroom is noted to have a large tarry black bowel movement concerning for an upper GI bleed which patient has a history of. Patient is also noted that time to have a near syncopal episode and blood pressure measuring in the 80s systolic. Patient's labs are relatively unr emarkable hemoglobin was 11 point fourth outside facility he was treated with IV Nexium and received 2.5 L of fluids prior to arrival here in our emergency department. Upon arrival here patient reports he is feeling much better, does not feel lightheaded, has not had any further bowel movements. - Related Data Home Medications Medication Instructions Recorded Confirmed ALPRAZolam [Xanax] 0.5 mg PO BID 08/20/16 03/28/19 Albuterol Nebulized [Ventolin 2.5 mg INHALATION RT-TID PRN 08/20/16 03/28/19 Nebulized] Ranitidine HCl [Zantac] 150 mg PO BID PRN 10/30/16 03/28/19 Aspirin 81 mg PO DAILY 01/06/17 03/28/19 Atorvastatin [Lipitor] 40 mg PO HS 01/06/17 03/28/19 Citalopram Hydrobromide [CeleXA] 20 mg PO BID 01/06/17 03/28/19 Metoprolol Tartrate [Lopressor] 12.5 mg PO BID 01/06/17 03/28/19 traZODone HCL 150 mg PO HS 01/06/17 03/28/19 Ipratropium Nebulized [Atrovent 0.5 mg INHALATION RT-QID 01/07/17 03/28/19 Nebulized 0.2 MG/ML] Previous Rx's Medication Instructions Recorded HYDROcodone/APAP 5-325MG [Malone 1 - 2 each PO Q6HR PRN #60 tab 01/15/17 5-325] Nicotine 21Mg/24Hr Patch [Habitrol] 1 patch TRANSDERM DAILY patch 01/15/17 Allergies Allergy/AdvReac Type Severity Reaction Status Date / Time peanut Allergy Anaphylaxis Verified 01/12/17 15:58 Review of Systems ROS Statement: Those systems with pertinent positive or pertinent negative responses have been documented in the HPI. ROS Other: All systems not noted in ROS Statement are negative. Past Medical History Past Medical History: Cancer, GERD/Reflux Additional Past Medical History / Comment(s): Lung mass, cavitating, consistent with squamous cell carcinoma, peptic ulcer disease, COPD with an FEV1 of 72% of predicted at baseline, history of alcoholism, depression, hyperlipidemia History of Any Multi-Drug Resistant Organisms: None Reported Past Surgical History: No Surgical Hx Reported Additional Past Surgical History / Comment(s): bronchoscopy Past Anesthesia/Blood Transfusion Reactions: Previous Problems w/ Anesthesia Additional Past Anesthesia/Blood Transfusion Reaction / Comment(s): pt states has not had anesthesia in past.no problems with prior blood transfusions Past Psychological History: Anxiety Smoking Status: Former smoker Past Alcohol Use History: Occasional Past Drug Use History: None Reported - Past Family History Father Family Medical History: Cancer Additional Family Medical History / Comment(s): throat Mother Family Medical History: No Reported History General Exam - General Exam Comments Initial Comments: Physical Exam GENERAL: Patient is well-developed and well-nourished. Patient is nontoxic and well- hydrated and is in no distress. HENT: Normocephalic, Atraumatic. EYES: PERRL, EOMI No conjunctival pallor PULMONARY: Unlabored respirations. CARDIOVASCULAR: There is a regular rate and rhythm without any murmurs gallops or rubs. Warm and well perfused extremities ABDOMEN: Soft and nontender with normal bowel sounds. SKIN: Skin is clear with no lesions or rashes and otherwise unremarkable. : Deferred NEUROLOGIC: Patient is alert and oriented x3. Moving all extremities spontaneously MUSCULOSKELETAL: Normal extremities with adequate strength and full range of motion. No lower extremity swelling or edema. No calf tenderness. PSYCHIATRIC: Normal psychiatric evaluation. Limitations: no limitations Course Vital Signs 03/28/19 03/28/19 03/28/19 00:23 01:27 01:56 Temperature 97.6 F Pulse Rate 88 98 88 Respiratory 20 20 Rate Blood Pressure 108/65 111/68 O2 Sat by Pulse 97 96 Oximetry 03/28/19 02:04 Temperature Pulse Rate 90 Respiratory Rate Blood Pressure O2 Sat by Pulse Oximetry EKG Findings - EKG Comments: EKG Findings:: KG was obtained due to complaint near-syncope, EKG obtained at 1:51 AM, rate is 95 rhythm sinus is normal axis and normal intervals, IN 144, QRS 84, QTC is 434 there are no acute ST elevations or depressions no evidence of acute ischemia or infarction. Medical Decision Making - Medical Decision Making Patient was seen and evaluated upon arrival in the emergency department. Patient presenting for further management of likely upper GI bleed with mild anemia. Patient has received a 2-1/2 L bolus, patient mildly hypertensive with systolics in the high 90s to low 100s. Patient reports symptoms have improved significantly. Patient is able to transition from EMS gurney to bed independently, patient insisting on ambulating independently to the restroom and was able do so multiple times. Repeat labs resulted with worsening anemia hemoglobin is now 9.4 however this is slightly dilutional as the patient has received significant fluids. Labs otherwise remain at baseline, troponin remains mildly elevated at 0.045, this is not a significant change from his previous. At this time the patient will be admitted to the hospital with GI consult for further management. - Lab Data Result diagrams: 03/28/19 00:37 03/28/19 00:37 Lab Results 03/28/19 03/28/19 03/28/19 Range/Units 00:37 00:37 00:37 WBC 8.9 (3.8-10.6) k/uL RBC 2.87 L (4.30-5.90) m/uL Hgb 9.4 L (13.0-17.5) gm/dL Hct 27.9 L (39.0-53.0) % MCV 97.1 (80.0-100.0) fL MCH 32.8 (25.0-35.0) pg MCHC 33.8 (31.0-37.0) g/dL RDW 13.9 (11.5-15.5) % Plt Count 196 (150-450) k/uL Neutrophils % 76 % Lymphocytes % 15 % Monocytes % 6 % Eosinophils % 2 % Basophils % 0 % Neutrophils # 6.7 (1.3-7.7) k/uL Lymphocytes # 1.4 (1.0-4.8) k/uL Monocytes # 0.5 (0-1.0) k/uL Eosinophils # 0.1 (0-0.7) k/uL Basophils # 0.0 (0-0.2) k/uL APTT 23.1 (22.0-30.0) sec Sodium 139 (137-145) mmol/L Potassium 4.5 (3.5-5.1) mmol/L Chloride 117 H (98-107) mmol/L Carbon Dioxide 19 L (22-30) mmol/L Anion Gap 3 mmol/L BUN 37 H (9-20) mg/dL Creatinine 0.58 L (0.66-1.25) mg/dL Est GFR (CKD-EPI)AfAm >90 (>60 ml/min/1.73 sqM) Est GFR (CKD-EPI)NonAf >90 (>60 ml/min/1.73 sqM) Glucose 103 H (74-99) mg/dL Plasma Lactic Acid Aris (0.7-2.0) mmol/L Calcium 6.7 L (8.4-10.2) mg/dL Total Bilirubin 0.3 (0.2-1.3) mg/dL AST 11 L (17-59) U/L ALT 20 L (21-72) U/L Alkaline Phosphatase 43 (38-126) U/L Troponin I (0.000-0.034) ng/mL Total Protein 4.1 L (6.3-8.2) g/dL Albumin 2.2 L (3.5-5.0) g/dL Blood Type Blood Type Recheck Bld Type Recheck Status Antibody Screen Spec Expiration Date 03/28/19 03/28/19 03/28/19 Range/Units 00:37 00:37 00:37 WBC (3.8-10.6) k/uL RBC (4.30-5.90) m/uL Hgb (13.0-17.5) gm/dL Hct (39.0-53.0) % MCV (80.0-100.0) fL MCH (25.0-35.0) pg MCHC (31.0-37.0) g/dL RDW (11.5-15.5) % Plt Count (150-450) k/uL Neutrophils % % Lymphocytes % % Monocytes % % Eosinophils % % Basophils % % Neutrophils # (1.3-7.7) k/uL Lymphocytes # (1.0-4.8) k/uL Monocytes # (0-1.0) k/uL Eosinophils # (0-0.7) k/uL Basophils # (0-0.2) k/uL APTT (22.0-30.0) sec Sodium (137-145) mmol/L Potassium (3.5-5.1) mmol/L Chloride (98-107) mmol/L Carbon Dioxide (22-30) mmol/L Anion Gap mmol/L BUN (9-20) mg/dL Creatinine (0.66-1.25) mg/dL Est GFR (CKD-EPI)AfAm (>60 ml/min/1.73 sqM) Est GFR (CKD-EPI)NonAf (>60 ml/min/1.73 sqM) Glucose (74-99) mg/dL Plasma Lactic Acid Aris 0.8 (0.7-2.0) mmol/L Calcium (8.4-10.2) mg/dL Total Bilirubin (0.2-1.3) mg/dL AST (17-59) U/L ALT (21-72) U/L Alkaline Phosphatase (38-126) U/L Troponin I 0.045 H* (0.000-0.034) ng/mL Total Protein (6.3-8.2) g/dL Albumin (3.5-5.0) g/dL Blood Type A Positive Blood Type Recheck A Pos Bld Type Recheck Status No Antibody Screen NEGATIVE Spec Expiration Date 03/31/20192336 Disposition Clinical Impression: Melena, Anemia Disposition: ADMITTED IP TO THIS [facility] Condition: Stable Is patient prescribed a controlled substance at d/c from ED?: No
[2019-03-28 01:13] LABS: ALT 20 U/L (21-72); AST 11 U/L (17-59); African American GFR (CKD) >90 (>60 ml/min/1.73 sqM); Albumin 2.2 g/dL (3.5-5.0); Alkaline Phosphatase 43 U/L (38-126); Anion Gap 3 mmol/L; Blood Urea Nitrogen 37 mg/dL (9-20); Calcium 6.7 mg/dL (8.4-10.2); Carbon Dioxide 19 mmol/L (22-30); Chloride 117 mmol/L (98-107); Glucose 103 mg/dL (74-99); Potassium 4.5 mmol/L (3.5-5.1); Sodium 139 mmol/L (137-145); Total Bilirubin 0.3 mg/dL (0.2-1.3); Total Protein 4.1 g/dL (6.3-8.2)
[2019-03-28] MEDS ORDERED: IPRATROPIUM-ALBUTEROL 3 ML NEB INHALATION STA (01:42)
[2019-03-28] MEDS ORDERED: PANTOPRAZOLE 40 MG/10 ML VIAL IVP SCH (09:00)
[2019-03-28] MEDS: NICOTINE 21MG/24HR PATCH TRANSDERM SCH (13:27)
--- NOTE | 2019-03-28 22:39 | P.CONS ---
History of Present Illness - Reason for Consult Consult date: 03/28/19 GI bleed Requesting physician: Abdiel Ornelas - Chief Complaint GI bleed - History of Present Illness 63-year-old male with a medical history significant for lung cancer diagnosed and treated in 2017, GERD, previous history of alcohol abuse and remote history of peptic ulcer disease who presented to an outside hospital with a constellation of symptoms including lightheadedness, near syncope and melena. The patient had initially reported symptoms of lightheadedness with a near syncopal episode. He was noted to have a large black bowel movement in the emergency department. Patient was hypotensive and found to have a hemoglobin of 11. He was transferred for further management. The patient reports a remote history of peptic ulcer disease 35 years ago. He also reports a remote history of alcoholism but denies any current alcohol abuse. He does report taking M otrin over the past few months after being weaned off [place]. He also reports significant tobacco abuse. Last EGD was approximately 10 years ago at which time he was told he had peptic ulcer disease as well as a colonoscopy approximately 20 years ago. Hemoglobin on presentation was 9.4. Total eliane irubin 0.3, alkaline phosphatase 43, AST 11 and MALT 26. Currently he is seen in the hospital resting comfortably on the medical floor reporting that he is feeling better overall. Review of Systems REVIEW OF SYSTEMS: CONSTITUTIONAL: Denies any fevers, chills, weight change or fatigue. CARDIOVASCULAR: Denies any chest pain, palpitations high or low blood pressures, was noted to be hypotensive at outside hospital RESPIRATORY: Denies any shortness of breath, hemoptysis or cough. GENITOURINARY: No dysuria or hematuria. MUSCULOSKELETAL: No weakness reported. SKIN: Denies any new rashes or lesions, jaundice or pallor. PSYCHIATRIC: Denies any depression or anxiety. NEUROLOGY: Denies headache, denies any new focal deficits. EARS/NOSE/THROAT: No recent hearing change, congestion, nasal discharge or sore throat. EYES: No pain in eyes, discharge or change in vision. GASTROINTESTINAL: As per HPI. Past Medical History Past Medical History: Cancer, GERD/Reflux Additional Past Medical History / Comment(s): Lung mass, cavitating, consistent with squamous cell carcinoma, peptic ulcer disease, COPD with an FEV1 of 72% of predicted at baseline, history of alcoholism, depression, hyperlipidemia History of Any Multi-Drug Resistant Organisms: None Reported Past Surgical History: No Surgical Hx Reported Additional Past Surgical History / Comment(s): bronchoscopy Past Anesthesia/Blood Transfusion Reactions: Previous Problems w/ Anesthesia Additional Past Anesthesia/Blood Transfusion Reaction / Comm: pt states has not had anesthesia in past.no problems with prior blood transfusions Past Psychological History: Anxiety Smoking Status: Former smoker Past Alcohol Use History: Occasional Past Drug Use History: None Reported - Past Family History Father Family Medical History: Cancer Additional Family Medical History / Comment(s): throat Mother Family Medical History: No Reported History Medications and Allergies Home Medications Medication Instructions Recorded Confirmed Type ALPRAZolam [Xanax] 0.5 mg PO BID 08/20/16 03/28/19 History Albuterol Nebulized [Ventolin 2.5 mg INHALATION RT-TID PRN 08/20/16 03/28/19 History Nebulized] Ranitidine HCl [Zantac] 150 mg PO BID 10/30/16 03/28/19 History Allergies Allergy/AdvReac Type Severity Reaction Status Date / Time peanut AdvReac see Verified 03/28/19 07:18 comments Physical Exam Vitals: Vital Signs Temp Pulse Pulse Resp BP BP Pulse Ox 03/28/19 15:00 97.7 F 82 12 115/74 96 03/28/19 08:50 94 L 03/28/19 07:00 98.6 F 86 17 93/60 92 L 03/28/19 02:20 97.9 F 97 18 92/48 93 L 03/28/19 02:04 90 03/28/19 01:56 88 03/28/19 01:27 98 20 111/68 96 03/28/19 00:23 97.6 F 88 20 108/65 97 Intake and Output 03/28/19 03/28/19 03/28/19 06:59 14:59 22:59 Intake Total 20 480 Balance 20 480 Intake: Amount of Fluid Infused ( 20 ml) Oral 480 Other: Voiding Method Toilet # Voids 1 2 # Bowel Movements 1 Weight 99.79 kg On physical examination, patient appears comfortable in no apparent distress. HEAD: Normocephalic, atraumatic. EYES: No scleral icterus. No conjunctival injection. MOUTH: No lesions, tongue midline. NECK: Trachea midline, no gross abnormalities. CHEST: Decreased air entry bilaterally with no RALES or wheezes. HEART: Regular rate and rhythm. ABDOMEN: Soft, obese. Bowel sounds are positive. No organomegaly. No guarding or rigidity. EXTREMITIES: No pedal edema. SKIN: No rashes, no jaundice. NEUROLOGIC: Alert and oriented x3. No focal deficits. Results CBC & Chem 7: 03/28/19 00:37 03/28/19 00:37 Labs: Abnormal Lab Results - Last 24 Hours (Table) 03/28/19 03/28/19 03/28/19 Range/Units 00:37 00:37 00:37 RBC 2.87 L (4.30-5.90) m/uL Hgb 9.4 L (13.0-17.5) gm/dL Hct 27.9 L (39.0-53.0) % Chloride 117 H (98-107) mmol/L Carbon Dioxide 19 L (22-30) mmol/L BUN 37 H (9-20) mg/dL Creatinine 0.58 L (0.66-1.25) mg/dL Glucose 103 H (74-99) mg/dL Calcium 6.7 L (8.4-10.2) mg/dL AST 11 L (17-59) U/L ALT 20 L (21-72) U/L Troponin I 0.045 H* (0.000-0.034) ng/mL Total Protein 4.1 L (6.3-8.2) g/dL Albumin 2.2 L (3.5-5.0) g/dL Assessment and Plan (1) Melena Narrative/Plan: 63-year-old male with a remote history of peptic ulcer disease who presented as a transfer from an outside hospital where he had symptoms of lightheadedness, hypotension and near syncope with a large melanotic bowel movement noted. The patient had been on NSAID therapy for the past few months after being weaned from [place] therapy. Differential includes peptic ulcer disease, severe erosive gastritis/esophagitis, AVM's or other etiology. Current Visit: Yes Status: Acute Code(s): K92.1 - MELENA SNOMED Code(s): 5151463 (2) Anemia associated with acute blood loss Current Visit: Yes Status: Acute Code(s): D62 - ACUTE POSTHEMORRHAGIC ANEMIA SNOMED Code(s): 713455160 Plan: Supportive care Okay for diet Nothing by mouth after midnight Will increase Protonix therapy to 40 mg IV twice daily Continue monitor hemoglobin and hematocrit and transfuse as needed Will plan on EGD tomorrow for further evaluation Avoid NSAID therapy Thank you for allowing us to participate in care of the patient we will continue to follow
--- NOTE | 2019-03-28 22:58 | P.HPIM ---
History of Present Illness H&P Date: 03/28/19 Chief Complaint: Black stools History of presenting complaint: This is a 63-year-old patient of Dr. Jackson was chronic stable medical conditions include COPD, hyperlipidemia, depression, GERD, anxiety and nicotine dependence. Patient has been feeling dizzy lightheaded. Noticed black stools for about 1 day. No abdominal pain. No nausea vomiting. Presented for the same. Initial hemoglobin was 9.4. GI was consulted. Patient was to go home. No prior history of peptic ulcer disease. Patient was drinking significant alcohol in the past. Now Dr. drinking about once a week. Otherwise drinking every night. For many years. Patient was transferred here from an outside facility. He received 2.5 L of fluid bolus and his hemoglobin there was 11. Was given IV Nexium. Was feeling better after the fluid bolus. Review of systems: GEN.: Tired dizzy lightheaded EYES: None HEENT: None NECK: None RESPIRATORY: Occasional wheezing CARDIOVASCULAR: None GASTROINTESTINAL: As above GENITOURINARY: None MUSCULOSKELETAL: None LYMPHATICS: None HEMATOLOGICAL: As above PSYCHIATRY: None NEUROLOGICAL: None Past medical history: To include Non-small cell lung cancer with lobectomy on the right lung, COPD, hyperlipidemia, depression, GERD, anxiety Social history: Smokes a pack a day for close to 40 years. Was drinking heavy alcohol until sometime ago. Now down to drinking alcohol once a week. Lives with girlfriend. Physical examination: VITAL SIGNS: 97.6, 88, 20, 108/65, 97% on 4 L, upon presentation GENERAL: BMI 29, sitting up not in distress. EYES: Pupils equal. Conjunctiva palel. HEENT: External appearance of nose and ears normal, oral cavity grossly normal. NECK: JVD not raised; masses not palpable. HEART: First and second heart sounds are normal; no edema. LUNGS: Respiratory rate normal; decreased breath sounds. ABDOMEN: Soft, nontender, liver spleen not palpable, no masses palpable. PSYCH: Alert and oriented x3; mood and affect normal. NEUROLOGICAL: Cranial nerves grossly intact; no facial asymmetry, power and sensation grossly intact. LYMPHATICS: No lymph nodes palpable in the axilla and neck INVESTIGATIONS, reviewed in the clinical context: White count 8.9 hemoglobin 9.4 platelets 196 potassium 4.5 137 creatinine 0.58 troponin 0.045 AST 11 ALT 20 Assessment: -This is a patient who presents with one-day of black stools and other symptomatic dizzy lightheaded. Hemoglobin of the other hospital was 11 now down to 9.4. Symptoms are bit better with IV fluids. Patient needs endoscopy. -COPD in a current smoker -Chronic nicotine dependence patient cigarette smoker -Hyperlipidemia -Depression and anxiety not otherwise specified -GERD -Acute blood loss anemia from GI tract Plan: Patient was to go home did explain to him at length the risk of going home including if he does too prematurely. Patient is put on a proton pump inhibitor. Given a nicotine patch. H&H will be followed. GI was consulted with a view to endoscopy. Dr. Erickson was consulted. Past Medical History Past Medical History: Cancer, GERD/Reflux Additional Past Medical History / Comment(s): Lung mass, cavitating, consistent with squamous cell carcinoma, peptic ulcer disease, COPD with an FEV1 of 72% of predicted at baseline, history of alcoholism, depression, hyperlipidemia History of Any Multi-Drug Resistant Organisms: None Reported Past Surgical History: No Surgical Hx Reported Additional Past Surgical History / Comment(s): bronchoscopy Past Anesthesia/Blood Transfusion Reactions: Previous Problems w/ Anesthesia Additional Past Anesthesia/Blood Transfusion Reaction / Comment(s): pt states has not had anesthesia in past.no problems with prior blood transfusions Past Psychological History: Anxiety Smoking Status: Former smoker Past Alcohol Use History: Occasional Past Drug Use History: None Reported - Past Family History Father Family Medical History: Cancer Additional Family Medical History / Comment(s): throat Mother Family Medical History: No Reported History Medications and Allergies Home Medications Medication Instructions Recorded Confirmed Type ALPRAZolam [Xanax] 0.5 mg PO BID 08/20/16 03/28/19 History Albuterol Nebulized [Ventolin 2.5 mg INHALATION RT-TID PRN 08/20/16 03/28/19 History Nebulized] Ranitidine HCl [Zantac] 150 mg PO BID 10/30/16 03/28/19 History Allergies Allergy/AdvReac Type Severity Reaction Status Date / Time peanut AdvReac see Verified 03/28/19 07:18 comments Physical Exam Vitals: Vital Signs Temp Pulse Pulse Resp BP BP Pulse Ox 03/28/19 15:00 97.7 F 82 12 115/74 96 03/28/19 08:50 94 L 03/28/19 07:00 98.6 F 86 17 93/60 92 L 03/28/19 02:20 97.9 F 97 18 92/48 93 L 03/28/19 02:04 90 03/28/19 01:56 88 03/28/19 01:27 98 20 111/68 96 03/28/19 00:23 97.6 F 88 20 108/65 97 Intake and Output 03/28/19 03/28/19 03/28/19 06:59 14:59 22:59 Intake Total 20 Balance 20 Intake: Amount of Fluid Infused ( 20 ml) Other: Voiding Method Toilet # Voids 1 Weight 99.79 kg Results CBC & Chem 7: 03/28/19 00:37 03/28/19 00:37 Labs: Abnormal Lab Results - Last 24 Hours (Table) 03/28/19 03/28/19 03/28/19 Range/Units 00:37 00:37 00:37 RBC 2.87 L (4.30-5.90) m/uL Hgb 9.4 L (13.0-17.5) gm/dL Hct 27.9 L (39.0-53.0) % Chloride 117 H (98-107) mmol/L Carbon Dioxide 19 L (22-30) mmol/L BUN 37 H (9-20) mg/dL Creatinine 0.58 L (0.66-1.25) mg/dL Glucose 103 H (74-99) mg/dL Calcium 6.7 L (8.4-10.2) mg/dL AST 11 L (17-59) U/L ALT 20 L (21-72) U/L Troponin I 0.045 H* (0.000-0.034) ng/mL Total Protein 4.1 L (6.3-8.2) g/dL Albumin 2.2 L (3.5-5.0) g/dL Thrombosis Risk Factor Assmnt - Choose All That Apply Other Risk Factors: No Each Risk Factor Represents 2 Points: Age 61-74 years Thrombosis Risk Factor Assessment Total Risk Factor Score: 2 Thrombosis Risk Factor Assessment Level: Low Risk
[2019-03-28 23:32] LABS: HCT 26.2 % (39.0-53.0); HGB 9.2 gm/dL (13.0-17.5); MCH 33.6 pg (25.0-35.0); MCV 96.2 fL (80.0-100.0); Mean Platelet Volume 8.9; Platelet Count 169 k/uL (150-450); RBC 2.72 m/uL (4.30-5.90); RDW 12.7 % (11.5-15.5); WBC 6.9 k/uL (3.8-10.6)
[2019-03-29 06:39] LABS: African American GFR (CKD) >90 (>60 ml/min/1.73 sqM); Anion Gap 2 mmol/L; Blood Urea Nitrogen 17 mg/dL (9-20); Calcium 8.4 mg/dL (8.4-10.2); Carbon Dioxide 29 mmol/L (22-30); Chloride 107 mmol/L (98-107); Glucose 105 mg/dL (74-99); Potassium 4.3 mmol/L (3.5-5.1); Sodium 138 mmol/L (137-145)
[2019-03-29 06:43] LABS: Basophils % (A) 0 %; Eosinophils # (A) 0.4 k/uL (0-0.7); Eosinophils % (A) 6 %; HCT 28.8 % (39.0-53.0); HGB 9.8 gm/dL (13.0-17.5); Lymphocytes # (A) 1.3 k/uL (1.0-4.8); Lymphocytes % (A) 18 %; MCH 32.5 pg (25.0-35.0); MCHC 33.9 g/dL (31.0-37.0); MCV 95.9 fL (80.0-100.0); Mean Platelet Volume 7.1; Monocytes # (A) 0.4 k/uL (0-1.0); Monocytes % (A) 6 %; Neutrophils # (A) 4.9 k/uL (1.3-7.7); Neutrophils % (A) 68 %; Platelet Count 223 k/uL (150-450); RBC 3.01 m/uL (4.30-5.90); RDW 13.2 % (11.5-15.5); WBC 7.2 k/uL (3.8-10.6)
[2019-03-29] MEDS: IPRATROPIUM-ALBUTEROL 3 ML NEB INHALATION SCH ×4 (08:43→15:19)
[2019-03-29] MEDS ORDERED: PANTOPRAZOLE 40 MG/10 ML VIAL IVP SCH (09:00)
[2019-03-29] MEDS: NICOTINE 21MG/24HR PATCH TRANSDERM SCH (09:23)
[2019-03-29] MEDS ORDERED: ALPRAZolam 0.5 MG TAB PO SCH (09:30)
[2019-03-29 11:33] VITALS: BMI 29.0
[2019-03-29] MEDS ORDERED: LIDOCAINE 1% INJ 10MG/ML (20 ML MDV) ONE (11:58)
[2019-03-29] MEDS ORDERED: PROPOFOL 10 MG/ML 20 ML VIAL IV ONE (11:58)
[2019-03-29] MEDS ORDERED: IV FLUID CONTINUATION 1,000 ML IV ONE ×2 (12:04)
[2019-03-29 12:29] VITALS: BP 119/75; PULSE 91; RESP 16; TEMP 98.2
--- NOTE | 2019-03-29 12:31 | P.PCN ---
Date of Procedure: 03/29/19 Description of Procedure: BRIEF HISTORY: 63-year-old male with a medical history significant for lung cancer diagnosed and treated in 2017, GERD, previous history of alcohol abuse and remote history of peptic ulcer disease who presented to an outside hospital with a constellation of symptoms including lightheadedness, near syncope and melena. The patient had initially reported symptoms of lightheadedness with a near syncopal episode. He was noted to have a large black bowel movement in the em ergency department. Patient was hypotensive and found to have a hemoglobin of 11. He was transferred for further management. The patient reports a remote history of peptic ulcer disease 35 years ago. He also reports a remote history of alcoholism but denies any current alcohol abuse. He does report taking Motrin over the past few months after being weaned off [place]. He also reports significant tobacco abuse. Last EGD was approximately 10 years ago at which time he was told he had peptic ulcer disease as well as a colonoscopy approximately 20 years ago. Hemoglobin on presentation was 9.4. Total bilirubin 0.3, alkaline phosphatase 43, AST 11 and MALT 26. Currently he is seen in the hospital resting comfortably on the medical floor reporting that he is feeling better overall. PROCEDURE PERFORMED: Esophagogastroduodenoscopy with biopsy. PREOPERATIVE DIAGNOSIS: Melena, anemia of acute blood loss. ESTIMATED BLOOD LOSS: Minimal. IV sedation per anesthesia. PROCEDURE: After informed consent was obtained, the patient was brought into the endoscopy unit. IV sedation was administered by Anesthesia under continuous monitoring. Initially the Olympus GIF-190 video endoscope was inserted into the mouth. Esophagus intubated without any difficulty. It was gradually advanced into the stomach and duodenum and carefully examined. The bulb and the second part of the duodenum appeared normal, with biopsies taken. The scope at this time was withdrawn to the stomach, adequately insufflated with air, and upon careful examination, mucosa of the antrum, body, cardia and the fundus and cratered 5 mm antral ulcer without evidence of active bleeding or high risk stigmata was seen and biopsied. Mild gastritis of the antrum and body were also seen and biopsied. The scope was then withdrawn into the esophagus. The GE junction was located at 39 cm from the incisors. The esophagus appeared normal. There were no erosions or ulcerations seen and the patient tolerated the procedure well. IMPRESSION: 1. Nonbleeding antral ulcer, biopsied. 2. Multiple gastritis antrum and body, biopsied. 3. Duodenal biopsies. RECOMMENDATIONS: The findings of this examination were discussed with the patient and the primary team. Okay to switch Protonix to 40 mg by mouth daily. Continue to monitor hemoglobin and transfuse as needed. Avoid NSAID use. Okay for discharge when otherwise medically stable.
[2019-03-29] MEDS ORDERED: PANTOPRAZOLE 40 MG TABLET PO SCH (17:30)
--- NOTE | 2019-03-29 23:47 | P.DS ---
Providers Date of admission: 03/28/19 01:02 Expected date of discharge: 03/29/19 Attending physician: Abdiel Ornelas Consults: 03/28/19 01:02 Consult Physician Urgent Consulting Provider: Frank Rao Reason/Comments: upper GIB, anemia Do you want consulting provider notified?: Yes, Notify in am Primary care physician: Bipin Jackson Assessment: Chief Complaint: Black stools Hospital course: This is a 63-year-old patient of Dr. Jackson was chronic stable medical conditions include COPD, hyperlipidemia, depression, GERD, anxiety and nicotine dependence. Patient has been feeling dizzy lightheaded. Noticed black stools for about 1 day. No abdominal pain. No nausea vomiting. Presented for the same. Initial hemoglobin was 9.4. GI was consulted. Patient was to go home. No prior history of peptic ulcer disease. Patient was drinking significant alcohol in the past. Now Dr. drinking about once a week. Otherwise drinking every night. For many years. Patient was transferred here from an outside facility. He received 2.5 L of fluid bolus and his hemoglobin there was 11. Was given IV Nexium. Was feeling better after the fluid bolus. EGD showed nonbleeding antral ulcer, multiple gastritis. Results discussed with GI. Randolph to be discharged on PPI. Consultation: Dr. Erickson from GI Physical examination: VITAL SIGNS: 98.2, 91, 16, 119/75, 95% room air GENERAL: Sitting up, comfortable EYES: Pupils equal. Conjunctiva pale. HEENT: External appearance of nose and ears normal, oral cavity grossly normal. NECK: JVD not raised; masses not palpable. HEART: First and second heart sounds are normal; no edema. LUNGS: Respiratory rate normal; decreased breath sounds. ABDOMEN: Soft, nontender, liver spleen not palpable, no masses palpable. PSYCH: Alert and oriented x3; mood and affect normal. INVESTIGATIONS, reviewed in the clinical context: Today's hemoglobin 9.8 Admission testing: White count 8.9 hemoglobin 9.4 platelets 196 potassium 4.5 137 creatinine 0.58 troponin 0.045 AST 11 ALT 20 Discharge diagnosis: -Acute GI bleed from gastric ulcer -Normocytic anemia from GI bleed from above -Chronic gastritis -COPD in a current smoker -Chronic nicotine dependence patient cigarette smoker -Hyperlipidemia -Depression and anxiety not otherwise specified -GERD -Acute blood loss anemia from GI tract Disposition: Home Patient Condition at Discharge: Stable Plan - Discharge Summary Discharge Rx Participant: No New Discharge Prescriptions: New Ipratropium [place] [Atrovent Hfa] 2 puff INHALATION QID #1 inhaler Nicotine 21Mg/24Hr Patch [Habitrol] 1 patch TRANSDERM DAILY #14 patch Pantoprazole [Protonix] 40 mg PO AC-BID #60 tablet. Albuterol Inhaler [Ventolin Hfa Inhaler] 1 - 2 puff INHALATION RT-Q6H PRN #1 inhaler PRN Reason: Wheezing Continue ALPRAZolam [Xanax] 0.5 mg PO BID Albuterol Nebulized [Ventolin Nebulized] 2.5 mg INHALATION RT-TID PRN PRN Reason: Shortness Of Breath Discontinued Ranitidine HCl [Zantac] 150 mg PO BID Discharge Medication List ALPRAZolam [Xanax] 0.5 mg PO BID 08/20/16 [History] Albuterol Nebulized [Ventolin Nebulized] 2.5 mg INHALATION RT-TID PRN 08/20/16 [History] Albuterol Inhaler [Ventolin Hfa Inhaler] 1 - 2 puff INHALATION RT-Q6H PRN #1 inhaler 03/29/19 [Rx] Ipratropium [place] [Atrovent Hfa] 2 puff INHALATION QID #1 inhaler 03/29/19 [Rx] Nicotine 21Mg/24Hr Patch [Habitrol] 1 patch TRANSDERM DAILY #14 patch 03/29/19 [Rx] Pantoprazole [Protonix] 40 mg PO AC-BID #60 tablet. 03/29/19 [Rx] Follow up Appointment(s)/Referral(s): Bipin Jackson MD [Primary Care Provider] - 1-2 days (at [facility]) Frank Rao MD [STAFF PHYSICIAN] - 04/15/19 11:30 am (come at 11:00 to fill out paper work) Activity/Diet/Wound Care/Special Instructions: CBC in 1 week Discharge Disposition: HOME SELF-CARE
== END 2019-03-29 16:35 | disposition home or self-care (01) ==
LOC: EC 00:20 → INTOOBSV 01:02 → 4SSUR 01:02
PROVIDERS: ADMIT Hospitalist; ATTEND Hospitalist
DX: K25.4 Chronic or unspecified gastric ulcer with hemorrhage (principal); K29.51 Unspecified chronic gastritis with bleeding; D62 Acute posthemorrhagic anemia; J44.9 Chronic obstructive pulmonary disease, unspecified; E78.5 Hyperlipidemia, unspecified; F32.9 Major depressive disorder, single episode, unspecified; F41.9 Anxiety disorder, unspecified; K21.9 Gastro-esophageal reflux disease without esophagitis; I10 Essential (primary) hypertension; F17.210 Nicotine dependence, cigarettes, uncomplicated; F10.11 Alcohol abuse, in remission; I95.9 Hypotension, unspecified; R77.8 Other specified abnormalities of plasma proteins; Z85.118 Personal history of other malignant neoplasm of bronchus and lung; Z87.11 Personal history of peptic ulcer disease; Z79.899 Other long term (current) drug therapy; Z79.82 Long term (current) use of aspirin; Z79.1 Long term (current) use of non-steroidal anti-inflammatories (NSAID); Z80.1 Family history of malignant neoplasm of trachea, bronchus and lung; Z91.010 Allergy to peanuts
CPT/HCPCS: 96374; 99285; 36415; 94640; 94760; 93005; 86900; 86901; 88305; 80053; 80048; 83605; 84484; 85025 ×2; 85027; 85730; 86850; 82272; 88342; 43239; G0378 ×3; S4990 ×2; J2001; J2704; C9113 ×2

== ENCOUNTER → 2019-04-14 | Outpatient (CLI) | payer OTHER ==
--- NOTE | 2019-04-14 15:23 | CT ---
EXAMINATION TYPE: CT ChestAbdPelvis wo/w con DATE OF EXAM: 04/14/2019 INDICATION: follow up lung cancer COMPARISON: 10/07/2018 CT DLP: 3422 mGycm CONTRAST: Performed with Oral Contrast and with IV Contrast, patient injected with 100 mL of Isovue 300. TECHNIQUE: Axial images at 5 mm thick sections. Reconstructed images in the coronal plane. Delayed images through the kidneys. FINDINGS: CT CHEST: Portion of the thyroid visualized is normal. Linear scarring appears to cross the superior right apex. This is a stable finding from comparison. M aximum thickening is 1.9 cm which is stable from comparison. No enlarged mediastinal or hilar adenopathy is evident. The ascending aorta diameter at the level of the main pulmonary artery is 3.9 cm. The main pulmonary artery diameter at the bifurcation is 2.5 cm. Artery artery calcification is present. CT ABDOMEN: Liver: Normal Spleen: Normal Pancreas: Normal Adrenal glands: The adrenal glands are normal. Gallbladder: Normal Kidneys: No masses are evident. No hydronephrosis is present. No cysts are present. Delayed images were obtained through the kidneys, which remain unremarkable. Aorta: Vascular calcification is within the aorta. Inferior vena cava: Normal. CT PELVIS: Loops of bowel within the abdomen and pelvis are normal. There are loops of bowel which are incom pletely distended or lack oral contrast limiting their evaluation. Appendix: Normal as visualized. Urinary bladder: Normal. Genitourinary structures: Prostate is prominent. Some inferior impression urinary bladder may be pres ent. Osseous structures: No suspicious lytic or sclerotic lesions. IMPRESSIONS: 1. Stable scarring from prior lung cancer right apex. 2. Prostate prominence. 3. No suspicious changes to suggest recurrent or metastatic lung cancer
== END | disposition home or self-care (01) ==
LOC: RADCTMAIN 12:07
PROVIDERS: ATTEND Radiology Radiation Oncology
DX: J98.4 Other disorders of lung (principal); C34.11 Malignant neoplasm of upper lobe, right bronchus or lung; F17.210 Nicotine dependence, cigarettes, uncomplicated; Z92.3 Personal history of irradiation
CPT/HCPCS: 71270; 74178; Q9967